=== PATIENT | female | born 1930 | race Caucasian/White ===

== ENCOUNTER 2017-01-23 06:36 | Day surgery (SDC) | payer MEDICARE, BC ==
[~2017-01-23] VITALS: Ht 154.9 cm; Wt 70.3 kg
[~2017-01-23 06:36] MED LIST: ACTOS15 MG PO; HCTZ25 MG PO; HYDROCODON-ACE1 EAC7 PO; LEVOTHYROXINE75 MCG PO; LIPITOR10 MG PO
[2017-01-23 07:22] LABS: HEMATOCRIT 38.4 % (36.0-48.0); HEMOGLOBIN 13.2 g/dL (12-16); MCH 33.6 pg (26.0-34.0); MCHC 34.4 g/dL (31.0-37.0); MCV 97.7 fL (80.0-100.0); MEAN PLATELET VOLUME 11.9 fL (7.4-10.4); RBC 3.93 10x6/uL (4.00-5.40); RDW 13.5 % (11.5-14.5); WBC 2.5 10x3/uL (4.8-10.8)
[2017-01-23 07:23] LABS: PLATELET COUNT 31 10x3/uL (130-400)
--- NOTE | 2017-01-23 07:29 | NUR ---
0725-CRITICAL PLATELET COUNT OF 31 CALLED BY RAFAELA FROM LAB DR SANTOS CALLED AND NEW ORDER RECEIVED FOR 1 UNIT OF PLATELETS TO INFUSE DURING SURGERY READ BACK AND VERIFIED. & ENTERED IN COMPUTER AND FEBRUARY FROM LAB NOTIFIED OF NEW ORDER
[2017-01-23 07:31] LABS: ANION GAP 13.2 mmol/L (8-16); CARBON DIOXIDE 27.4 mmol/L (21.0-32.0); CREATININE - SERUM 0.9 mg/dL (0.6-1.3); POTASSIUM - SERUM 3.6 mmol/L (3.5-5.1)
[2017-01-23 07:56] LABS: EOSINOPHILS 21 % (0-7); LYMPHOCYTES 22 % (15-50); MONOCYTES 2 % (2-11); NEUTROPHILS 54 % (40-80)
[2017-01-23 07:57] LABS: PLATELET ESTIMATE DECREASED
[2017-01-23 08:19] VITALS: BP 161/73; Ht 154.9 cm; Wt 70.3 kg
[2017-01-23] MEDS ORDERED: HYDROCODON-ACE1 EAC7 PO (09:28)
--- NOTE | 2017-02-07 13:21 | OP ---
PATIENT NAME: BALDEV RETANA MEDICAL RECORD: [id number] :31 LOCATION:D.OPS ADMISSION DATE: SURGEON: KEITH SANTOS MD DATE OF OPERATION: 01/23/2017 PREOPERATIVE DIAGNOSES: 1. Non-Hodgkin's lymphoma. 2. Hypertension. 3. Diabetes mellitus. 4. Hypothyroidism. 5. Thrombocytopenia. POSTOPERATIVE DIAGNOSES: 1. Non-Hodgkin's lymphoma. 2. Hypertension. 3. Diabetes mellitus. 4. Hypothyroidism. 5. Thrombocytopenia. PROCEDURE: 1. Right subclavian vein port placement. 2. Fluoroscopic interpretation. SURGEON: Keith Santos MD. OPERATIVE PROCEDURE: The patient's right chest was prepped and draped in sterile fashion and needle was used to cannulate the right subclavian vein. The guidewire was advanced with ease. Fluoro was used to note that the wire was in good position in the venous system. A skin incision was made on the right chest and a subcutaneous pouch was formed. The catheter was tunneled between this pouch and the wire exit site. The port was sutured to the pectoral fascia using interrupted 2-0 Prolenes times 2. The catheter was then cut with a beveled tip at 15 cm. The dilator trocar device was placed over the wire and the wire and dilator were removed. The catheter tip was advanced through the trocar with ease and the trocar was removed. Fluoro was used to note that the catheter tip resting in good position in the right atrial supra vena caval junction. The catheter aspirated a nonpulsatile dark blood and flushed easily with heparinized saline. The subcutaneous tissues were reapproximated with interrupted 3-0 Vicryl and then infused with 10 mL 0.25% Marcaine with epinephrine. The skin incisions were all closed with subcutaneous 5-0 Monocryl and dressed appropriately. COMPLICATIONS: None. CONDITION: Stable. ANESTHESIA: General endotracheal and local. BLOOD LOSS: Minimal. TRANSINT:[id number] Voice Confirmation ID: [id number] DOCUMENT ID: [id number] OPERATIVE REPORT [id number] BALDEV RETANA KEITH SANTOS MD at 1321 CC: DICK VELASQUEZ MD and RAMY GARNER MD [id number] DICTATION DATE: 01/23/17 0932 JACQUARD LACE WEAVER: 01/23/17 1706 [facility] [place] 01/23/17 [facility] [address] [place] [address]
== END 2017-01-23 11:45 | disposition home or self-care (01) ==
LOC: D.OPS 06:36 → D.PAN 08:15 → D.OPS 11:45
PROVIDERS: Anesthesiology
DX: C85.90 Non-Hodgkin lymphoma, unspecified, unspecified site (principal); I10 Essential (primary) hypertension; E11.9 Type 2 diabetes mellitus without complications; E03.9 Hypothyroidism, unspecified; D69.6 Thrombocytopenia, unspecified

== ENCOUNTER 2017-04-10 11:19 | Outpatient (CLI) | payer MEDICARE, BC ==
[~2017-04-10] VITALS: Ht 154.9 cm; Wt 68.6 kg
[2017-04-10 13:52] VITALS: BP 132/63; Ht 154.9 cm; Wt 68.6 kg
--- NOTE | 2017-04-10 16:42 | NUR ---
PORT NEEDLE REMOVED AND FLUSHED WITH HEPRIN AND SALINE
== END 2017-04-10 16:30 | disposition home or self-care (01) ==
LOC: D.OPS 11:19
DX: D69.6 Thrombocytopenia, unspecified (principal)

== ENCOUNTER 2018-08-20 16:23 | Inpatient (IN) | payer MEDICARE, BC ==
[~2018-08-20] VITALS: Ht 154.9 cm; Wt 62.1 kg
--- NOTE | ~2018-08-20 | RHP ---
PATIENT: BALDEV RETANA MEDICAL RECORD: [id number] ACCOUNT: [id number] LOCATION:[facility]1116 : 31 ADMISSION DATE: 08/21/18 REHABILITATION HISTORY AND PHYSICAL EXAMINATION POST ADMISSION PHYSICIAN EXAMINATION DATE OF ADMISSION: 08/21/2018 ADMITTING DIAGNOSIS: Debility secondary to a diabetic neuropathy. HISTORY OF PRESENT ILLNESS: The patient was admitted to inpatient rehab for debility secondary to diabetic neuropathy. He is an 88-year-old female patient that was admitted from the [facility] for significant weakness in bilateral lower extremities and then progressively getting worse over the previous 3 weeks. She had been experiencing some numbness and tingling in her hands and feet, was started on Neurontin that was believed to have actually aggravated her neuropathy and worsen her symptoms and weakness instead of improving it, she began getting weaker and having difficulty with gait and again falling. She became nonverbal, was unable to ambulate prior to this acute hospitalization. She has been started on Lyrica for neuropathic pain. She has become more alert, has been verbalizing her needs since this has begun. She lives at home alone, is usually independent with ADLs and mobility. She began using a rolling walker in the past few weeks since having difficulty with her mobility. She also has been driving. She is currently set for max assist for ADLs, moderate to max assist with mobility. She has neuropathic pain, requiring pain management. She lives alone and is currently unable to feed herself secondary debility, these are all barriers to her discharge. Her family and herself hope to be able to discharge home and be able to get back to her prior low level of function or better if possible. COMORBIDITIES: Include neuropathy, weakness of both lower extremities, hyperkalemia, essential hypertension, acute hyperthyroidism, hyponatremia, cirrhosis, diabetes, history of cancer, weakness, malaise and decreased platelets. PAST MEDICAL HISTORY: Significant for cancer of the bone marrow, diabetes, cirrhosis. PAST SURGICAL HISTORY: Includes hysterectomy. ALLERGIES: METFORMIN. CURRENT MEDICATIONS: Include Synthroid 75 mcg daily, Actos 15 mg daily, meloxicam 7.5 mg daily, Lyrica 50 mg daily, carvedilol 6.25 mg b.i.d. with meals, tramadol 50 mg every 6 hours p.r.n. pain, and polyethylene glycol 17 grams in 8 ounces of water daily. HABITS: No alcohol or tobacco use. FAMILY HISTORY: Noncontributory. SOCIAL HISTORY: The patient hopes to return back home and get back to her prior level of functioning. REVIEW OF SYSTEMS: HISTORY AND PHYSICAL [id number] BALDEV RETANA GENERAL: Does complain of weakness and fatigue. HEENT: Denies cold, cough, or congestion. CARDIOVASCULAR: Denies chest pain. PHYSICAL EXAMINATION: VITAL SIGNS: Stable, afebrile. GENERAL: An elderly female, in no acute distress upon exam. HEENT: Normocephalic and atraumatic. Mucosa moist. NECK: Supple. No lymphadenopathy. LUNGS: Clear in upper jacques. HEART: Regular rate and rhythm. ABDOMEN: Benign. EXTREMITIES: No clubbing, cyanosis or edema. NEUROLOGIC: She does have decreased sensation. She does have pain to palpation of her lower extremities and proximal muscle weakness. LABORATORY DATA: White count is 3.6, H&H of 11 and 33 and platelet count was noted to be 32,000. She has got an MCV of 102.2. Her sodium is 135, potassium is 4.6, BUN and creatinine of 16 and 0.9, blood sugar is noted to be 135. ASSESSMENT: This is an 88-year-old female patient admitted to rehab with a working diagnosis of debility secondary to diabetes and neuropathy. The patient has potential to make improvement. We instituted the following multidisciplinary therapies including, but not limited to physical, occupational, respiratory, speech, nutritional services, prosthetics and orthotics. Given her complex medical condition and risk for more complications, rehabilitation services cannot be provided at a low level of care such as senior living facility. PLAN: 1. Admit to [facility] services for intensive inpatient therapy to include the following disciplines: A. Physical therapy to improve gait, all transfer skills and bed mobility to a modified independent level. B. Occupational therapy to a to a modified independent level. C. Case management to assist with discharge planning and placement options. D. Nutrition to assist with nutritional needs. E. Rehabilitation nursing to assist in monitoring the patient's underlying medical conditions and to assist with any type of bowel or bladder management. 2. The patient's current medication and medical care will be continued. 3. The patient will be placed on standard fall precautions. 4. The patient's estimated length of stay is approximately 7 to 10 days. 5. We will watch her platelets closely, watch for any signs of bleeding. We will give her some platelets if necessary. 6. I am going to follow up in the a.m. TRANSINT:[id number] Voice Confirmation ID: [id number] DOCUMENT ID: [id number] LENA notes whether there has been none or any medical/functional change since admission: - No change since prescreen. LENA attests patient continues to be appropriate for IRF: HISTORY AND PHYSICAL [id number] BALDEV RETANA - Continues to be approriate. AZEEM JULIO MD at 1812 CC: [id number] DICTATION DATE: 08/22/18 0952 CORRESPONDENCE SCHOOL INSTRUCTOR: 08/22/18 1021 ADM IN [place] [id number] [place] [address]
[2018-08-21] MEDS ORDERED: COREG6.25 MG (13:39)
[2018-08-21] MEDS ORDERED: LYRICA50 MG PO (13:40)
[2018-08-21] MEDS ORDERED: ULTRAM50 MG PO (13:41)
[2018-08-21] MEDS ORDERED: MOBIC7.5 MG PO (13:44)
[2018-08-21 14:17] VITALS: BP 115/43
[2018-08-21] MEDS ORDERED: GABAPENTIN100 MG (16:57)
[2018-08-21 19:00] VITALS: BP 121/46
[2018-08-22 06:46] LABS: BASOPHILS 0.6 % (0-2); HEMATOCRIT 33.1 % (36.0-48.0); LYMPHOCYTES 19.8 % (15-50); MCHC 33.2 g/dL (31.0-37.0); MCV 102.2 fL (80.0-100.0); MEAN PLATELET VOLUME 10.6 fL (7.4-10.4); MONOCYTES 8.8 % (2-11); NEUTROPHILS 62.8 % (40-80); RBC 3.24 10x6/uL (4.00-5.40); RDW 17.3 % (11.5-14.5); WBC 3.6 10x3/uL (4.8-10.8)
[2018-08-22 06:47] LABS: PLATELET COUNT 32 10x3/uL (130-400)
[2018-08-22 06:58] LABS: ANION GAP 11.6 mmol/L (8-16); CALCIUM 7.9 mg/dL (8.5-10.1); CREATININE - SERUM 0.9 mg/dL (0.6-1.3); POTASSIUM - SERUM 4.6 mmol/L (3.5-5.1)
[2018-08-22 09:50] VITALS: BMI 25.8
[2018-08-22 19:44] VITALS: BP 107/35
[2018-08-23 09:48] VITALS: BP 116/47
[2018-08-23 21:51] VITALS: BP 105/54
[2018-08-24 07:13] LABS: BASOPHILS 0.4 % (0-2); EOSINOPHILS 9.2 % (0-7); HEMATOCRIT 32.8 % (36.0-48.0); HEMOGLOBIN 10.8 g/dL (12-16); IMMATURE GRANULOCYTES 0.4 % (0-5); LYMPHOCYTES 24.5 % (15-50); MCH 34.3 pg (26.0-34.0); MCHC 32.9 g/dL (31.0-37.0); MCV 104.1 fL (80.0-100.0); MEAN PLATELET VOLUME 10.4 fL (7.4-10.4); MONOCYTES 9.6 % (2-11); NEUTROPHILS 55.9 % (40-80); RBC 3.15 10x6/uL (4.00-5.40); RDW 17.8 % (11.5-14.5)
[2018-08-24 07:25] LABS: ANION GAP 13.8 mmol/L (8-16); CARBON DIOXIDE 22.4 mmol/L (21.0-32.0); CREATININE - SERUM 0.9 mg/dL (0.6-1.3); POTASSIUM - SERUM 4.2 mmol/L (3.5-5.1)
[2018-08-24 07:26] LABS: WBC 2.5 10x3/uL (4.8-10.8)
[2018-08-24 07:29] LABS: PLATELET COUNT 27 10x3/uL (130-400)
[2018-08-24 07:58] VITALS: BP 143/46
[2018-08-24 12:31] LABS: CKMB 0.9 U/L (0.0-3.6); CREATINE KINASE 50 UL (21-215); TROPONIN-I < 0.017 ng/mL (0.000-0.060)
[2018-08-24 17:40] LABS: CKMB 0.6 U/L (0.0-3.6); CREATINE KINASE 54 UL (21-215)
[2018-08-24 17:41] LABS: TROPONIN-I < 0.017 ng/mL (0.000-0.060)
[2018-08-24 19:00] VITALS: BP 103/34
[2018-08-24 23:53] LABS: CKMB 0.8 U/L (0.0-3.6); CREATINE KINASE 49 UL (21-215); TROPONIN-I 0.017 ng/mL (0.000-0.060)
[2018-08-25 08:00] VITALS: BP 142/58
[2018-08-25 19:00] VITALS: BP 116/42
[2018-08-26 06:19] LABS: HEMATOCRIT 33.2 % (36.0-48.0); HEMOGLOBIN 10.8 g/dL (12-16); MCH 34.6 pg (26.0-34.0); MCHC 32.5 g/dL (31.0-37.0); MCV 106.4 fL (80.0-100.0); MEAN PLATELET VOLUME 11.7 fL (7.4-10.4); RBC 3.12 10x6/uL (4.00-5.40); RDW 18.1 % (11.5-14.5); WBC 2.4 10x3/uL (4.8-10.8)
[2018-08-26 06:20] LABS: PLATELET COUNT 27 10x3/uL (130-400)
[2018-08-26 06:37] LABS: ANION GAP 10.7 mmol/L (8-16); CALCIUM 8.1 mg/dL (8.5-10.1); CARBON DIOXIDE 23.9 mmol/L (21.0-32.0); CREATININE - SERUM 0.9 mg/dL (0.6-1.3); POTASSIUM - SERUM 4.6 mmol/L (3.5-5.1)
[2018-08-26 07:45] LABS: EOSINOPHILS 4 % (0-7); LYMPHOCYTES 24 % (15-50); MONOCYTES 6 % (2-11); NEUTROPHILS 63 % (40-80); PLATELET ESTIMATE DECREASED
[2018-08-26 07:46] LABS: ROULEAUX OCC
[2018-08-26 08:00] VITALS: BP 130/46
[2018-08-26 19:00] VITALS: BP 106/34
[2018-08-27 08:39] VITALS: BP 142/72
[2018-08-27 19:00] VITALS: BP 130/44
[2018-08-28 06:15] LABS: BASOPHILS 0.4 % (0-2); EOSINOPHILS 7.6 % (0-7); HEMATOCRIT 33.7 % (36.0-48.0); LYMPHOCYTES 26.3 % (15-50); MCH 34.4 pg (26.0-34.0); MCHC 32.6 g/dL (31.0-37.0); MCV 105.3 fL (80.0-100.0); MEAN PLATELET VOLUME 10.7 fL (7.4-10.4); MONOCYTES 11.6 % (2-11); NEUTROPHILS 54.1 % (40-80); RDW 18.1 % (11.5-14.5); WBC 2.5 10x3/uL (4.8-10.8)
[2018-08-28 06:23] LABS: PLATELET COUNT 27 10x3/uL (130-400)
[2018-08-28 06:30] LABS: ANION GAP 10.5 mmol/L (8-16); CALCIUM 8.1 mg/dL (8.5-10.1); CARBON DIOXIDE 23.8 mmol/L (21.0-32.0); POTASSIUM - SERUM 4.3 mmol/L (3.5-5.1)
[2018-08-28 08:00] VITALS: BP 121/51
[2018-08-28 19:00] VITALS: BP 124/42
[2018-08-29 08:00] VITALS: BP 135/54
[2018-08-29 23:34] VITALS: BP 128/76
[2018-08-30 08:57] VITALS: BP 162/52
[2018-08-30 20:11] VITALS: BP 138/48
[2018-08-31 06:17] LABS: BASOPHILS 0.4 % (0-2); EOSINOPHILS 7.8 % (0-7); HEMATOCRIT 32.4 % (36.0-48.0); HEMOGLOBIN 10.6 g/dL (12-16); LYMPHOCYTES 25.2 % (15-50); MCH 34.5 pg (26.0-34.0); MCHC 32.7 g/dL (31.0-37.0); MCV 105.5 fL (80.0-100.0); MONOCYTES 8.1 % (2-11); NEUTROPHILS 58.5 % (40-80); RBC 3.07 10x6/uL (4.00-5.40); WBC 2.6 10x3/uL (4.8-10.8)
[2018-08-31 06:24] LABS: PLATELET COUNT 29 10x3/uL (130-400)
[2018-08-31 06:31] LABS: ANION GAP 11.2 mmol/L (8-16); CARBON DIOXIDE 23.9 mmol/L (21.0-32.0); CREATININE - SERUM 0.9 mg/dL (0.6-1.3); POTASSIUM - SERUM 4.1 mmol/L (3.5-5.1)
[2018-08-31 08:00] VITALS: BP 172/67
[2018-08-31 19:05] VITALS: BP 122/59
[2018-09-01 09:31] VITALS: Ht 154.9 cm; Wt 62.1 kg
[2018-09-02 00:16] VITALS: BP 96/34
[2018-09-02 19:00] VITALS: BP 129/51
[2018-09-03 01:40] VITALS: BP 114/41
[2018-09-03 01:55] VITALS: BP 110/38
[2018-09-03 02:10] VITALS: BP 104/40
[2018-09-03 04:20] VITALS: BP 93/39
[2018-09-03 08:00] VITALS: BP 141/47
[2018-09-03 19:00] VITALS: BP 100/33
[2018-09-04 07:17] LABS: ANION GAP 11.2 mmol/L (8-16); CALCIUM 8.4 mg/dL (8.5-10.1); CARBON DIOXIDE 24.5 mmol/L (21.0-32.0); CREATININE - SERUM 1.4 mg/dL (0.6-1.3); POTASSIUM - SERUM 4.7 mmol/L (3.5-5.1)
[2018-09-04 07:22] LABS: HEMATOCRIT 32.7 % (36.0-48.0); HEMOGLOBIN 10.9 g/dL (12-16); LYMPHOCYTES 28.3 % (15-50); MCH 34.6 pg (26.0-34.0); MCHC 33.3 g/dL (31.0-37.0); MCV 103.8 fL (80.0-100.0); NEUTROPHILS 61.4 % (40-80); RBC 3.15 10x6/uL (4.00-5.40); RDW 18.7 % (11.5-14.5); WBC 2.6 10x3/uL (4.8-10.8)
[2018-09-04 07:23] LABS: PLATELET COUNT 23 10x3/uL (130-400)
[2018-09-04 07:24] LABS: MEAN PLATELET VOLUME 6.9 fL (7.4-10.4)
[2018-09-04 08:00] VITALS: BP 130/48
== END 2018-09-04 13:20 | DRG 948 ==
LOC: D.REHAB 16:23
PROVIDERS: Emergency Medicine
DX: R53.81 Other malaise (principal); E87.1 Hypo-osmolality and hyponatremia; E11.40 Type 2 diabetes mellitus with diabetic neuropathy, unspecified; R53.1 Weakness; E87.5 Hyperkalemia; I10 Essential (primary) hypertension; E05.90 Thyrotoxicosis, unspecified without thyrotoxic crisis or storm; K74.60 Unspecified cirrhosis of liver; E11.65 Type 2 diabetes mellitus with hyperglycemia; E03.9 Hypothyroidism, unspecified; D69.6 Thrombocytopenia, unspecified

== ENCOUNTER 2018-09-21 17:56 | Inpatient (IN) | payer MEDICARE, BC ==
[~2018-09-21] VITALS: Ht 154.9 cm; Wt 65.8 kg
--- NOTE | ~2018-09-21 | MORECARE ---
CASE MANAGEMENT DISCHARGE SUMMARY PATIENT: BALDEV RETANA UNIT: [id number] ADM DATE: 09/21/18 AGE: 88 : 31 SEX: F ROOM/BED: D.2222 AUTHOR: SETH SALMERON PHYSICIAN: REFERRING PHYSICIAN: ROEL JOLLEY MD DATE OF SERVICE: 09/22/18 Discharge Plan Patient Name: BALDEV RETANA [facility] [facility] 1930 Planned Disposition: SNF w Planned Readmission Anticipated Discharge Date: Discharge Date: Expected LOS: Initial Reviewer: [email or web address] Initial Review Date: 09/22/2018 Generated: 09/22/18 11:56 am Patient Name: BALDEV RETANA Page [id number] at 1056 All edits/amendments must be made on the electronic document DICTATION DATE: 09/22/18 1055 CONFIGURATION DEVELOPER: DONNELL 09/22/18 1055 RPT#: [id number] DC DATE: STATUS: ADM IN [facility] [address] [place] [address] END OF REPORT
--- NOTE | ~2018-09-21 | MORECARE ---
CASE MANAGEMENT DISCHARGE SUMMARY PATIENT: BALDEV RETANA UNIT: [id number] ADM DATE: 09/21/18 AGE: 88 : 31 SEX: F ROOM/BED: D.2222 AUTHOR: JARON,SETH PHYSICIAN: REFERRING PHYSICIAN: ROEL JOLLEY MD DATE OF SERVICE: 09/29/18 Discharge Plan Patient Name: BALDEV RETANA Facility: [facility]:[place] : 1930 Planned Disposition: SNF w Planned Readmission Anticipated Discharge Date: Discharge Date: Expected LOS: Initial Reviewer: [email or web address] Initial Review Date: 09/22/2018 Generated: 09/29/18 11:00 am Comments DCP- Discharge Planning Updated by [email or web address]: Bri Morataya on 09/29/18 8:[address] Met with patient, she is sitting up in the chair. States her discharge plan remains returning to [facility] to continue her therapy. Updated clinical faxed to [facility]. CM will continue to follow and assist with discharge planning/needs. DCP- Discharge Planning Updated by [email or web address]: Bri Morataya on 09/22/18 10:[address] I spoke with Rosaura at [facility] and they will accept patient back to SNF when medically stable. CM will continue to follow and assist with discharge planning/needs. DCP- Discharge Planning Updated by [email or web address]: Bri Morataya on 09/22/18 10:[address] Patient Name: BALDEV RETANA Admission Status: Elective Accout number: [id number] Admission Date: 09-21-2018 : 1930 Admission Diagnosis: Attending: ROEL JOLLEY Current LOS: 1 Anticipated DC Date: Planned Disposition: SNF w Planned Readmission Primary Insurance: MEDICARE A & B Discharge Planning Comments: CM met with patient to discuss discharge planning. She was alone in the room when starting discharge planning and gave me permission to call her son or DIL to discuss plan. She states that she was living alone prior to going to our rehab, then to [facility] for therapy. She would like to go home, but states if she is unable to go home would like to go back to [facility]. She states she has a "walking stick, potty chair, walker and her daughter in law has bought a wheelchair". The son and DIL came in before I left the room and they states she does live alone and will need to be "self sufficient before going to her home." CM will continue to follow and assist with discharge/planning. Principal Solutions Architect: Bri Rafia DCPIA - Discharge Planning Initial Assessment Updated by [email or web address]: Bri Morataya on 09/22/18 10:57 am * Is the patient Alert and Oriented? Yes * How many steps to enter\\exit or inside your home? 2/0 * PCP Dr. Tran * Pharmacy [facility] in [place] * Preadmission Environment Acute Care Facility * Facility Name [facility] * ADLs Partial Dependent * Partial ADLs (Assistance needed) Ambulation Bathing Medication Management Toileting Transfers * Equipment Bedside Commode Cane Walker Wheelchair * List name and contact numbers for known caregivers / representatives who currently or will assist patient after discharge: Barney Retana - igor - [phone] Mila BECKER - [phone] * Verbal permission to speak to the caregivers and representatives has been obtained from the patient. Yes * Community resources currently utilized Other * Please name any agencies selected above. Was at [facility] in [place] for skilled therapy * Additional services required to return to the preadmission environment? Yes * Can the patient safely return to the preadmission environment? No * Has this patient been hospitalized within the prior 30 days at any hospital? Yes Last DP export: 09/23/18 11:08 Patient Name: BALDEV RETANA Page 07062 at 1000 All edits/amendments must be made on the electronic document DICTATION DATE: 09/29/18 1000 REHABILITATION THERAPIST: DONNELL 09/29/18 1000 RPT#: [id number] DC DATE: STATUS: ADM IN [facility] [address] [place] [address] END OF REPORT
--- NOTE | ~2018-09-21 | MORECARE ---
CASE MANAGEMENT DISCHARGE SUMMARY PATIENT: BALDEV RETANA UNIT: [id number] ADM DATE: 09/21/18 AGE: 88 : 31 SEX: F ROOM/BED: D.2222 AUTHOR: JARON,DOC PHYSICIAN: REFERRING PHYSICIAN: ROEL JOLLEY MD DATE OF SERVICE: 10/05/18 Discharge Plan Patient Name: BALDEV RETANA Facility: [facility]:[place] : 1930 Planned Disposition: SNF w Planned Readmission Anticipated Discharge Date: Discharge Date: Expected LOS: Initial Reviewer: [email or web address] Initial Review Date: 09/22/2018 Generated: 10/05/18 4:13 pm Comments DCP- Discharge Planning Updated by [email or web address]: Bri Morataya on 10/05/18 2:[address] Received discharge order, she is in agreement to go to inpatient rehab tonight after her bone marrow biopsy. She states it is ok to call her son and inform him. I called her son, Barney Retana, he would like to be notified when all doctor's are in agreement to discharge her to rehab. I informed him that we would call her consulting doctors before she was transferred. I informed Renae (well flow operator) to make sure Dr. Zapata does not want to wait until biopsy result is back. If she needs to start treatment, she may not be able to transfer to rehab tonight. CM will continue to follow and assist with discharge planning/needs. DCP- Discharge Planning Updated by [email or web address]: Bri Morataya on 10/02/18 9:[address] Inpatient rehab screen noted. Patient is asleep in the room. I called patient's son, Barney, and he states that they and the patient would like her to go to inpatient rehab here at [facility]. Son states that he feels like she can rehab enough in the 10-14 days to return home after inpatient rehab is completed. I spoke with Miriam in inpatient rehab and they will screen. CM will continue to follow and assist with discharge planning/needs. DCP- Discharge Planning Updated by [email or web address]: Bri Morataya on 09/29/18 8:[address] Met with patient, she is sitting up in the chair. States her discharge plan remains returning to [facility] to continue her therapy. Updated clinical faxed to [facility]. CM will continue to follow and assist with discharge planning/needs. DCP- Discharge Planning Updated by [email or web address]: Bri Collinsbyron on 09/22/18 10:[address] I spoke with Rosaura at [facility] and they will accept patient back to SNF when medically stable. CM will continue to follow and assist with discharge planning/needs. DCP- Discharge Planning Updated by [email or web address]: Bri Collinsbyron on 09/22/18 10:[address] Patient Name: BALDEV RETANA Admission Status: Elective Accout number: [id number] Admission Date: 09-21-2018 : 1930 Admission Diagnosis: Attending: ROEL JOLLEY Current LOS: 1 Anticipated DC Date: Planned Disposition: SNF w Planned Readmission Primary Insurance: MEDICARE A & B Discharge Planning Comments: CM met with patient to discuss discharge planning. She was alone in the room when starting discharge planning and gave me permission to call her son or DIL to discuss plan. She states that she was living alone prior to going to our rehab, then to [facility] for therapy. She would like to go home, but states if she is unable to go home would like to go back to [facility]. She states she has a "walking stick, potty chair, walker and her daughter in law has bought a wheelchair". The son and DIL came in before I left the room and they states she does live alone and will need to be "self sufficient before going to her home." CM will continue to follow and assist with discharge/planning. Competitive Intelligence Analyst: Bri Rafia DCPIA - Discharge Planning Initial Assessment Updated by [email or web address]: Bri Collinsbyron on 09/22/18 10:57 am * Is the patient Alert and Oriented? Yes * How many steps to enter\\exit or inside your home? 2/0 * PCP Dr. Tran * Pharmacy [facility] in [place] * Preadmission Environment Acute Care Facility * Facility Name [facility] * ADLs Partial Dependent * Partial ADLs (Assistance needed) Ambulation Bathing Medication Management Toileting Transfers * Equipment Bedside Commode Cane Walker Wheelchair * List name and contact numbers for known caregivers / representatives who currently or will assist patient after discharge: Barney Retana - son - [phone] Mila Davenport [facility] - [phone] * Verbal permission to speak to the caregivers and representatives has been obtained from the patient. Yes * Community resources currently utilized Other * Please name any agencies selected above. Was at [facility] in [place] for skilled therapy * Additional services required to return to the preadmission environment? Yes * Can the patient safely return to the preadmission environment? No * Has this patient been hospitalized within the prior 30 days at any hospital? Yes Coverage Notice Reviewer: [email or web address] Ethel Morataya Notice Issued Date-Time: 10/05/2018 14:56 Notice Type: IM Discharge Notice Notice Delivered To: Patient Relationship to Patient: Self Instructional Leader Name: Delivery Method: HAND - Hand Delivered Damaris Days: Prior Verbal Notification: Recipient Understood Notice: Yes Recipient Signature: Yes Med Rec Note Co-signed by Attending: Coverage Notice Comment: IMM explained, signed, copy given, original placed in MR Last DP export: 10/02/18 9:53 Patient Name: BALDEV RETANA Page 40817 at 1514 All edits/amendments must be made on the electronic document DICTATION DATE: 10/05/181512 DRAFTER AUTOMOTIVE DESIGN: DONNELL 10/05/181512 RPT#: [id number] DC DATE: STATUS: ADM IN [facility] [address] [place] [address] END OF REPORT
--- NOTE | ~2018-09-21 | MORECARE ---
CASE MANAGEMENT DISCHARGE SUMMARY PATIENT: BALDEV RETANA UNIT: [id number] ADM DATE: 09/21/18 AGE: 88 : 31 SEX: F ROOM/BED: D.2222 AUTHOR: JARON,DOC PHYSICIAN: REFERRING PHYSICIAN: ROEL JOLLEY MD DATE OF SERVICE: 10/06/18 Discharge Plan Patient Name: BALDEV RETANA Facility: [facility]:[place] : 1930 Planned Disposition: SNF w Planned Readmission Anticipated Discharge Date: Discharge Date: 10/05/2018 Expected LOS: 0 Initial Reviewer: [email or web address] Initial Review Date: 09/22/2018 Generated: 10/06/18 8:58 am Comments DCP- Discharge Planning Updated by [email or web address]: Bri Morataya on 10/05/18 2:[address] Received discharge order, she is in agreement to go to inpatient rehab tonight after her bone marrow biopsy. She states it is ok to call her son and inform him. I called her son, Barney Retana, he would like to be notified when all doctor's are in agreement to discharge her to rehab. I informed him that we would call her consulting doctors before she was transferred. I informed Renae (community health education coordinator) to make sure Dr. Zapata does not want to wait until biopsy result is back. If she needs to start treatment, she may not be able to transfer to rehab tonight. CM will continue to follow and assist with discharge planning/needs. DCP- Discharge Planning Updated by [email or web address]: Bri Collinsbyron on 10/02/18 9:[address] Inpatient rehab screen noted. Patient is asleep in the room. I called patient's son, Barney, and he states that they and the patient would like her to go to inpatient rehab here at [facility]. Son states that he feels like she can rehab enough in the 10-14 days to return home after inpatient rehab is completed. I spoke with Miriam in inpatient rehab and they will screen. CM will continue to follow and assist with discharge planning/needs. DCP- Discharge Planning Updated by [id number]: Bri Collinsbyron on 09/29/18 8:[address] Met with patient, she is sitting up in the chair. States her discharge plan remains returning to [facility] to continue her therapy. Updated clinical faxed to [facility]. CM will continue to follow and assist with discharge planning/needs. DCP- Discharge Planning Updated by [email or web address]: Bri Rafia on 09/22/18 10:[address] I spoke with Rosaura at [facility] and they will accept patient back to SNF when medically stable. CM will continue to follow and assist with discharge planning/needs. DCP- Discharge Planning Updated by [email or web address]: Bri Rafia on 09/22/18 10:[address] Patient Name: BALDEV RETANA Admission Status: Elective Accout number: [id number] Admission Date: 09-21-2018 : 1930 Admission Diagnosis: Attending: ROEL JOLLEY Current LOS: 1 Anticipated DC Date: Planned Disposition: SNF w Planned Readmission Primary Insurance: MEDICARE A & B Discharge Planning Comments: CM met with patient to discuss discharge planning. She was alone in the room when starting discharge planning and gave me permission to call her son or DIL to discuss plan. She states that she was living alone prior to going to our rehab, then to [facility] for therapy. She would like to go home, but states if she is unable to go home would like to go back to [facility]. She states she has a "walking stick, potty chair, walker and her daughter in law has bought a wheelchair". The son and DIL came in before I left the room and they states she does live alone and will need to be "self sufficient before going to her home." CM will continue to follow and assist with discharge/planning. Dress Finisher: Bri Morataya DCPIA - Discharge Planning Initial Assessment Updated by [email or web address]: Bri Morataya on 09/22/18 10:57 am * Is the patient Alert and Oriented? Yes * How many steps to enter\\exit or inside your home? 2/0 * PCP Dr. Tran * Pharmacy [facility] in [place] * Preadmission Environment Acute Care Facility * Facility Name [facility] * ADLs Partial Dependent * Partial ADLs (Assistance needed) Ambulation Bathing Medication Management Toileting Transfers * Equipment Bedside Commode Cane Walker Wheelchair * List name and contact numbers for known caregivers / representatives who currently or will assist patient after discharge: Barney Retana - [facility] - [phone] Mila Retana [facility] - [phone] * Verbal permission to speak to the caregivers and representatives has been obtained from the patient. Yes * Community resources currently utilized Other * Please name any agencies selected above. Was at [facility] in [place] for skilled therapy * Additional services required to return to the preadmission environment? Yes * Can the patient safely return to the preadmission environment? No * Has this patient been hospitalized within the prior 30 days at any hospital? Yes Coverage Notice Reviewer: [id number] Ethel Morataya Notice Issued Date-Time: 10/05/2018 14:56 Notice Type: IM Discharge Notice Notice Delivered To: Patient Relationship to Patient: Self Sales Representative Printing Name: Delivery Method: HAND - Hand Delivered Damaris Days: Prior Verbal Notification: Recipient Understood Notice: Yes Recipient Signature: Yes Med Rec Note Co-signed by Attending: Coverage Notice Comment: IMM explained, signed, copy given, original placed in MR Last DP export: 10/05/18 2:14 Patient Name: BALDEV RETANA Page 20161 at 0758 All edits/amendments must be made on the electronic document DICTATION DATE: 10/06/18756 RECEIVING CLERK: DONNELL 10/06/18756 RPT#: [id number] DC DATE:10/05/18 STATUS: DIS IN [facility] [address] [place] [address] END OF REPORT
--- NOTE | ~2018-09-21 | CN ---
PATIENT NAME:BALDEV RETANA MEDICAL RECORD: [id number] : 32 LOCATION:D.MS Ramos2222 ADMIT DATE: 09/21/18 ACCOUNT: [id number] CONSULTING PHYSICIAN: AXEL QUINONES MD REFERRING PHYSICIAN: ROEL JOLLEY MD DATE OF CONSULTATION: 09/22/2018 CONSULT REQUESTING PHYSICIAN: Alex Oreilly MD REASON FOR CONSULTATION: Pneumonia and bilateral pleural effusion. HISTORY OF PRESENT ILLNESS: Ms. Retana is an 88-year-old female who was admitted to [facility] with generalized edema and bilateral pleural effusion. Recently, she was diagnosed with cirrhosis of the liver. The patient was transferred over here for further care. She has some night sweats at night. Denies any fever or chills now. She has cough with very little sputum production. REVIEW OF THE SYSTEMS: Mainly in the history of present illness. PAST MEDICAL HISTORY: 1. History of non-Hodgkin's lymphoma. She was on chemotherapy by Dr. Zapata. 2. History of hyperkalemia. 3. Hypertension. 4. Cataract. 5. Diabetes mellitus type 2. 6. Hypothyroidism. PAST SURGICAL HISTORY: She had hysterectomy. She had a port placement. ALLERGIES: SHE IS ALLERGIC TO METFORMIN. MEDICATIONS: [employer] was reviewed. PERSONAL AND SOCIAL HISTORY: The patient is never smoker and nondrinker. FAMILY HISTORY: Significant for cancer and hypertension. PHYSICAL EXAMINATION: GENERAL: The patient is now lying comfortably in bed. She is not in acute distress. VITAL SIGNS: The blood pressure is 177/69, pulse is 74, respiration is 16, temperature 98.1, and SpO2 95% on 2 liters nasal cannula. HEENT: Conjunctivae are pale. Sclerae are not icteric. NECK: Neck is supple. No JVD. CHEST: The chest excursion is minimal on the left side. There are crackles. No wheezing. HEART: Rhythm regular. Normal sound. No murmur. ABDOMEN: Abdomen is soft. Bowel sounds present. No hepatosplenomegaly. RECTAL: Deferred. EXTREMITIES: No cyanosis. No clubbing. No pedal edema. CENTRAL NERVOUS SYSTEM: The patient is awake and alert. There is no obvious cranial nerve abnormality. The gait was not tested. DIAGNOSTIC DATA: Chest radiograph; there is consolidation of the left lower CONSULT REPORT [id number] KEYS,BALDEV DELL lobe. There is bilateral pleural effusion. LABORATORY DATA: CBC; the WBC is 2.9, hemoglobin 10.9, hematocrit 33.7, and the platelet count is 24. IMPRESSION: 1. Acute hypoxic respiratory failure secondary to #2. 2. Pneumonia, left lower lobe. 3. Bilateral pleural effusion. 4. Cirrhosis of liver. 5. Pancytopenia. 6. History of non-Hodgkin's lymphoma. RECOMMENDATION: 1. Discontinue Zithromax. Start on Levaquin. 2. Rocephin IV. 3. GI consult. 4. Dr. Zapata has already been consulted. 5. Check CT scan of the chest. 6. Follow up labs and chest radiograph. Dr. Oreilly, thank you for involving me in the care of Ms. Retana. TRANSINT:[id number] Voice Confirmation ID: [id number] DOCUMENT ID: [id number] AXEL QUINONES MD at 1711 CC: [id number] DICTATION DATE: 09/22/18 1534 DIRECTOR PRESALES: 09/22/18 1809 DIS IN 10/05/18 [address] [place] [place] [address]
--- NOTE | ~2018-09-21 | MORECARE ---
CASE MANAGEMENT DISCHARGE SUMMARY PATIENT: BALDEV RETANA UNIT: [id number] ADM DATE: 09/21/18 AGE: 88 : 31 SEX: F ROOM/BED: D.2222 AUTHOR: SETH SALMERON PHYSICIAN: REFERRING PHYSICIAN: ROEL JOLLEY MD DATE OF SERVICE: 09/22/18 Discharge Plan Patient Name: BALDEV RETANA Facility: [facility]:[place] : 1930 Planned Disposition: SNF w Planned Readmission Anticipated Discharge Date: Discharge Date: Expected LOS: Initial Reviewer: [email or web address] Initial Review Date: 09/22/2018 Generated: 09/22/18 12:02 pm DCPIA - Discharge Planning Initial Assessment Updated by [email or web address]: Bri Morataya on 09/22/18 10:57 am * Is the patient Alert and Oriented? Yes * How many steps to enter\exit or inside your home? 2/0 * PCP Dr. Tran * Pharmacy [facility] in [place] * Preadmission Environment Acute Care Facility * Facility Name [facility] * ADLs Partial Dependent * Partial ADLs (Assistance needed) Ambulation Bathing Medication Management Toileting Transfers * Equipment Bedside Commode Cane Walker Wheelchair * List name and contact numbers for known caregivers / representatives who currently or will assist patient after discharge: Barney Retana - son - [phone] Mila Retana [facility] - [phone] * Verbal permission to speak to the caregivers and representatives has been obtained from the patient. Yes * Community resources currently utilized Other * Please name any agencies selected above. Was at [facility] in [place] for skilled therapy * Additional services required to return to the preadmission environment? Yes * Can the patient safely return to the preadmission environment? No * Has this patient been hospitalized within the prior 30 days at any hospital? Yes Last DP export: 09/22/18 9:56 Patient Name: BALDEV RETANA Page [id number] at 1102 All edits/amendments must be made on the electronic document DICTATION DATE: 09/22/18 1102 [employer] SUPERINTENDENT: DONNELL 09/22/18 1102 RPT#: [id number] DC DATE: STATUS: ADM IN [facility] [address] [place] [address] END OF REPORT
--- NOTE | ~2018-09-21 | MORECARE ---
CASE MANAGEMENT DISCHARGE SUMMARY PATIENT: BALDEV RETANA UNIT: [id number] ADM DATE: 09/21/18 AGE: 88 : 31 SEX: F ROOM/BED: D.2222 AUTHOR: JARONDOC PHYSICIAN: REFERRING PHYSICIAN: ROEL JOLLEY MD DATE OF SERVICE: 09/23/18 Discharge Plan Patient Name: BALDEV RETANA Facility: [facility]:[place] : 1930 Planned Disposition: SNF w Planned Readmission Anticipated Discharge Date: Discharge Date: Expected LOS: Initial Reviewer: [email or web address] Initial Review Date: 09/22/2018 Generated: 09/23/18 1:08 pm Comments DCP- Discharge Planning Updated by [email or web address]: Bri Morataya on 09/22/18 10:[address] I spoke with Rosaura at [facility] and they will accept patient back to SNF when medically stable. CM will continue to follow and assist with discharge planning/needs. DCP- Discharge Planning Updated by [id number]: Bri Morataya on 09/22/18 10:[address] Patient Name: BALDEV RETANA Admission Status: Elective Accout number: [id number] Admission Date: 09-21-2018 : 1930 Admission Diagnosis: Attending: ROEL JOLLEY Current LOS: 1 Anticipated DC Date: Planned Disposition: SNF w Planned Readmission Primary Insurance: MEDICARE A & B Discharge Planning Comments: CM met with patient to discuss discharge planning. She was alone in the room when starting discharge planning and gave me permission to call her son or DIL to discuss plan. She states that she was living alone prior to going to our rehab, then to [facility] for therapy. She would like to go home, but states if she is unable to go home would like to go back to [facility]. She states she has a "walking stick, potty chair, walker and her daughter in law has bought a wheelchair". The son and DIL came in before I left the room and they states she does live alone and will need to be "self sufficient before going to her home." CM will continue to follow and assist with discharge/planning. Membership Sales Representative: Bri Morataya DCPIA - Discharge Planning Initial Assessment Updated by [email or web address]: Bri Morataya on 09/22/18 10:57 am * Is the patient Alert and Oriented? Yes * How many steps to enter\\exit or inside your home? 2/0 * PCP Dr. Tran * Pharmacy [facility] in [place] * Preadmission Environment Acute Care Facility * Facility Name [facility] * ADLs Partial Dependent * Partial ADLs (Assistance needed) Ambulation Bathing Medication Management Toileting Transfers * Equipment Bedside Commode Cane Walker Wheelchair * List name and contact numbers for known caregivers / representatives who currently or will assist patient after discharge: Barney Retana [facility] - [phone] Mila Retana [facility] - [phone] * Verbal permission to speak to the caregivers and representatives has been obtained from the patient. Yes * Community resources currently utilized Other * Please name any agencies selected above. Was at [facility] in [place] for skilled therapy * Additional services required to return to the preadmission environment? Yes * Can the patient safely return to the preadmission environment? No * Has this patient been hospitalized within the prior 30 days at any hospital? Yes External Providers External Provider: [facility] Next Contact Date: Service Request Date: Service Type: Resolution: Reviewer: Comments: Last DP export: 09/22/18 10:10 Patient Name: BALDEV RETANA Page [id number] at 1208 All edits/amendments must be made on the electronic document DICTATION DATE: 09/23/181207 RN DIALYSIS: DONNELL 09/23/18 1208 RPT#: [id number] DC DATE: STATUS: ADM IN [facility] [address] [place] [address] END OF REPORT
--- NOTE | ~2018-09-21 | MORECARE ---
CASE MANAGEMENT DISCHARGE SUMMARY PATIENT: BALDEV RETANA UNIT: [id number] ADM DATE: 09/21/18 AGE: 88 : 31 SEX: F ROOM/BED: D.2222 AUTHOR: JARONDOC PHYSICIAN: REFERRING PHYSICIAN: ROEL JOLLEY MD DATE OF SERVICE: 09/22/18 Discharge Plan Patient Name: BALDEV RETANA Facility: [facility]:[place] : 1930 Planned Disposition: SNF w Planned Readmission Anticipated Discharge Date: Discharge Date: Expected LOS: Initial Reviewer: [email or web address] Initial Review Date: 09/22/2018 Generated: 09/22/18 12:10 pm Comments DCP- Discharge Planning Updated by [email or web address]: Bri Morataya on 09/22/18 10:[address] I spoke with Rosaura at [facility] and they will accept patient back to SNF when medically stable. CM will continue to follow and assist with discharge planning/needs. DCP- Discharge Planning Updated by [email or web address]: Bri Morataya on 09/22/18 10:[address] Patient Name: BALDEV RETANA Admission Status: Elective Accout number: [id number] Admission Date: 09-21-2018 : 1930 Admission Diagnosis: Attending: ROEL JOLLEY Current LOS: 1 Anticipated DC Date: Planned Disposition: SNF w Planned Readmission Primary Insurance: MEDICARE A & B Discharge Planning Comments: CM met with patient to discuss discharge planning. She was alone in the room when starting discharge planning and gave me permission to call her son or DIL to discuss plan. She states that she was living alone prior to going to our rehab, then to [facility] for therapy. She would like to go home, but states if she is unable to go home would like to go back to [facility]. She states she has a "walking stick, potty chair, walker and her daughter in law has bought a wheelchair". The son and DIL came in before I left the room and they states she does live alone and will need to be "self sufficient before going to her home." CM will continue to follow and assist with discharge/planning. Cash Applications Analyst: Bri Morataya DCPIA - Discharge Planning Initial Assessment Updated by [email or web address]: Bri Morataya on 09/22/18 10:57 am * Is the patient Alert and Oriented? Yes * How many steps to enter\\exit or inside your home? 2/0 * PCP Dr. Tran * Pharmacy [facility] in [place] * Preadmission Environment Acute Care Facility * Facility Name [facility] * ADLs Partial Dependent * Partial ADLs (Assistance needed) Ambulation Bathing Medication Management Toileting Transfers * Equipment Bedside Commode Cane Walker Wheelchair * List name and contact numbers for known caregivers / representatives who currently or will assist patient after discharge: Barney Retana [facility] - [phone] Mila Retana [facility] - [phone] * Verbal permission to speak to the caregivers and representatives has been obtained from the patient. Yes * Community resources currently utilized Other * Please name any agencies selected above. Was at [facility] in [place] for skilled therapy * Additional services required to return to the preadmission environment? Yes * Can the patient safely return to the preadmission environment? No * Has this patient been hospitalized within the prior 30 days at any hospital? Yes Last DP export: 09/22/18 10:02 Patient Name: BALDEV RETANA Page 62925 at 1110 All edits/amendments must be made on the electronic document DICTATION DATE: 09/22/181108 HOME SALES CONSULTANT: DONNELL 09/22/181108 RPT#: [id number] DC DATE: STATUS: ADM IN [facility] [address] [place] [address] END OF REPORT
--- NOTE | ~2018-09-21 | HEMODYNAMI ---
PATIENT:BALDEV RETANA MEDICAL RECORD: [id number] : 32 LOCATION:[place] D.2222 ADMISSION DATE: 09/21/18 Generatedon:09/24/201816:56 Patient name: BALDEV RETANA Patient #: [id number] SSN: : Date of study: 09/24/2018 Page: Of Hemodynamic Procedure Report Patient Data Patient Demographics Procedure consent was obtained First Name: BALDEV Gender: Female Last Name: LAINEY : 1930 [facility] Initial: GLENYS Age: 88 year(s) Patient #: [id number] Race: Unknown Additional ID: [id number] Contact details [address]: [address] [place] [address] State: [place] City: [place] Zip code: [address] Admission Admission Data Admission Date: 09/21/2018 Admission Time: 17:56 Room #: D.2222 Height (in.): 61 BSA: 1.65 (m2) Height (cm.): 154.94 BMI: 27.4 (kg/m2) Weight (lbs.): 145 Weight (kg.): 65.77 Procedure Procedure Types Cath Procedure Peripheral Cath Diagnostic Procedure Assistant Professor Of Spanish Peripheral Procedures Liver Liver Biopsy T-Cath Procedure Description Procedure Date Procedure Date: 09/24/2018 Procedure Start Time: 16:23 Procedure Staff Name Function Randy Diaz MD Performing Physician Joseline Graves RT Strip Feeder Belen Mcdaniel RN Nurse Montana Burnett RT Scrub Procedure Data Cath Procedure Fluoroscopy Diagnostic fluoroscopy Total fluoroscopy Time: 9.1 time: 9.1 min min Diagnostic fluoroscopy Total fluoroscopy dose: 117 dose: 117 mGy mGy Contrast Material Contrast Material Type Amount (ml) Isovue 300 15 Procedure Medications Medication Administration Route Dosage Heparin Flush Bag added to field 1 bags (1000units/500ml NS) Lidocaine 1% added to field 20 Versed I.V. 1 mg Fentanyl I.V. 50 mcg Versed I.V. 1 mg Fentanyl I.V. 50 mcg Hemodynamics Rest BSA: 1.65 (m2) O2 Consumption: Estimated: 158.25 (ml/min) O2 Consumption indexed : Estimated:95.91 (ml/min/m) Heart Rate: 90 (bpm) Snapshots Pre Cath Intra NCS Post Cath Vital Signs Time Heart Resp SPO2 etCO2 NIBP (mmHg) Rhythm Pain Sedation Rate (ipm) (%) (mmHg) Status Level (bpm) 16:08:58 101 25 91 22.6 161/84(129) NSR 0 (11) 10(A) , No pain 16:13:34 82 16 94 24.8 157/74(114) NSR 0 (11) 10(A) , No pain 16:18:03 87 22 94 23.3 154/73(120) NSR 0 (11) 10(A) , No pain 16:22:33 89 19 96 23.3 162/75(114) NSR 0 (11) 10(A) , No pain 16:27:32 86 19 94 25.6 Measuring NSR 0 (11) 10(A) , No pain 16:28:01 84 19 94 29.4 150/69(115) NSR 0 (11) 10(A) , No pain 16:32:27 93 24 94 30.9 147/73(109) NSR 0 (11) 10(A) , No pain 16:36:51 83 23 95 27.1 132/82(100) NSR 0 (11) 10(A) , No pain 16:41:12 87 15 95 27.1 150/71(111) NSR 0 (11) 10(A) , No pain 16:45:40 84 16 95 24.8 160/75(119) NSR 0 (11) 10(A) , No pain 16:50:04 82 16 95 26.3 150/74(108) NSR 0 (11) 10(A) , No pain 16:54:35 83 18 94 27.1 141/68(106) NSR 0 (11) 10(A) , No pain Medications Time Medication Route Dose Verified Delivered Reason Notes Effec tiveness by by 16:23:42 Heparin Flush added 1 used for Bag to bags procedure (1000units/500ml field NS) 16:23:56 Lidocaine 1% added 20ml Randy Diaz used for to vial MD PRUETT procedure field 16:24:13 Versed I.V. 1 mg M Sukhdeep Diaz Belen for MD Jonas RODRÍGUEZ sedation 16:24:25 Fentanyl I.V. 50 M Sukhdeep Diaz Belen for olga Mcdaniel RN sedation 16:26:00 Versed I.V. 1 mg M Sukhdeep Diaz Belen for MD Jonas RODRÍGUEZ sedation 16:26:19 Fentanyl I.V. 50 M Sukhdeep Glover for olga Mcdaniel RN sedation Procedure Log Time Note 11:50:12 Patient Height : 61 inches 11:50:16 Patient Weight : 145 lbs 16:04:17 Time tracking: Regular hours (M-F 7:00 - 5:00) 16:04:40 Patient received from Med/Surg to IR Alert and oriented. Tansferred to table in Supine position. 16:04:46 Signed procedure consent form obtained from patient. 16:04:53 H&P Date Dictated: 09/24/2018 Within 30 days and on chart.. 16:05:26 - 16:05:27 ----Pre-sedation anethsthesia assessment.---- 16:05:30 Previous problem with sedation/anesthesia? No ? 16:05:33 Snore? Yes 16:05:36 Sleep apnea? No 16:05:39 Deviated septum? No 16:05:42 Opens mouth fully? Yes 16:05:44 Sticks out tongue? Yes 16:05:53 Airway obstruction? Yes pneumonia 16:05:59 Dentures? No ? 16:06:02 - 16:06:14 IV patent on arrival in right forearm with D5/.45%NaCl at O. 16:06:24 - 16:06:28 Patient diabetic? Yes. 16:06:33 Is patient on blood thinner?No 16:06:37 Is the patient allergic to Iodine/contrast media? No. 16:06:40 - 16:07:29 ECG and BP/O2 sat monitors applied to patient. 16:07:30 Vital chart was started 16:07:36 Baseline sample Acquired. 16:07:42 Full Disclosure recording started 16:07:44 - 16:11:41 Use device set IR Diagnostic 16:11:43 Sterile Angiographic Pack opened to sterile field. 16:11:44 Bag Decanter () opened to sterile field. 16:11:45 Tegaderm 4 x 4 (1626W) opened to sterile field. 16:12:00 KIT LIVER BX ACCESS ([id number]) opened to sterile field. 16:15:[address] Nile (141363) opened to sterile field. 16:21:44 Physician arrived 16:21:46 --------ALL STOP TIME OUT------ 16:21:47 Final Timeout: patient, procedure, and site verified with staff and physician. All members of the team are in agreement. 16:22:04 Procedure started. 16:23:28 Local anesthetic to right IJ vein with Lidocaine 1% by Randy Diaz MD.INITIAL ACCESS ONLY 16:23:32 Venous access obtained using ultrasound guidance. 16:23:42 Heparin Flush Bag (1000units/500ml NS) 1 bags added to field was administered by ; used for procedure; 16:23:52 DOC .035 wire ([id number]) opened to sterile field. 16:23:56 Lidocaine 1% 20ml vial added to field was administered by Randy Diaz MD; used for procedure; 16:24:06 Micropuncture VSI 4FR kit opened to sterile field. 16:24:13 Versed 1 mg I.V. was administered by Belen Mcdaniel RN; for sedation; 16:24:25 Fentanyl 50 mcg I.V. was administered by Belen Mcdaniel RN; for sedation ; 16:26:00 Versed 1 mg I.V. was administered by Belen Mcdaniel RN; for sedation; 16:26:19 Fentanyl 50 mcg I.V. was administered by Belen Mcdaniel RN; for sedation ; 16:30:37 AMPLATZ Super stiff 180cm wire ([id number]) opened to sterile field. 16:30:57 Baseline sample Acquired. 16:32:43 GLIDE CATHETER 5FR ANGLED 65cm (CG507) opened to sterile field. 16:35:39 KIT LIVER BX ACCESS (T51256) opened to sterile field. 16:52:50 Procedure ended.(Physican Out) 16:53:08 Fluoroscopy time 09.10 minutes. 16:53:13 Flurop Dose total: 117 16:53:13 Fluoroscopy dose: 117 mGy 16:53:19 Contrast amount:Isovue 300 15ml. 16:53:23 Procedure and supply charges have been captured, reviewed, submitted an d are correct. 16:55:10 Report given to Med/Surg. 16:56:46 Vital chart was stopped Device Usage Item Name Manufacture Quantity Catalog Hospital Part Current Minima l Lot# / Number Charge Number Stock Stock Serial# Code Sterile Cardinal 1 [id number] 5 Angiographic Health Pack Bag Decanter Microtek 1 [id number] 73289 [id number] 5 () Medical Inc. Tegaderm 4 x 3M 1 1626W 494779 850352 331122 5 4 (1626W) KIT LIVER BX [employer] 2 [id number] 151946 855653 782575 5 [id number] ACCESS [id number] ([id number]) SHEATH [facility]FR [facility] Nile 1 578067 894800 293302 410451 5 Nile (918805) DOC .035 wire [employer] 1 [id number] 034974 048151 5 (A82447) Micropuncture VSI VASCULAR 1 7266V 195220 314973 5 VSI 4FR kit SOLUTIONS AMPLATZ Super [place] 1 [id number] 714021 768539 834128 5 stiff 180cm Scientific wire ([id number]) GLIDE Terumo 1 CG507 119432 425044 5 CATHETER 5FR ANGLED 65cm (CG507) Signature Audit [place] Stage Time Signature Unsigned Intra-Procedure 09/24/2018 Joseline Graves 4:56:44 PM RT(R) [facility] [address] [place] [address]
--- NOTE | ~2018-09-21 | MORECARE ---
CASE MANAGEMENT DISCHARGE SUMMARY PATIENT: BALDEV RETANA UNIT: [id number] ADM DATE: 09/21/18 AGE: 88 : 31 SEX: F ROOM/BED: D.2222 AUTHOR: JARON,DOC PHYSICIAN: REFERRING PHYSICIAN: ROEL JOLLEY MD DATE OF SERVICE: 10/02/18 Discharge Plan Patient Name: BALDEV RETANA Facility: [facility]:[place] : 1930 Planned Disposition: SNF w Planned Readmission Anticipated Discharge Date: Discharge Date: Expected LOS: Initial Reviewer: [email or web address] Initial Review Date: 09/22/2018 Generated: 10/02/18 11:53 am Comments DCP- Discharge Planning Updated by [email or web address]: Bri Morataya on 10/02/18 9:[address] Inpatient rehab screen noted. Patient is asleep in the room. I called patient's son, Barney, and he states that they and the patient would like her to go to inpatient rehab here at [facility]. Son states that he feels like she can rehab enough in the 10-14 days to return home after inpatient rehab is completed. I spoke with Miriam in inpatient rehab and they will screen. CM will continue to follow and assist with discharge planning/needs. DCP- Discharge Planning Updated by [email or web address]: Bri Morataya on 09/29/18 8:[address] Met with patient, she is sitting up in the chair. States her discharge plan remains returning to [facility] to continue her therapy. Updated clinical faxed to [facility]. CM will continue to follow and assist with discharge planning/needs. DCP- Discharge Planning Updated by [email or web address]: Bri Morataya on 09/22/18 10:[address] I spoke with Rosaura at [facility] and they will accept patient back to SNF when medically stable. CM will continue to follow and assist with discharge planning/needs. DCP- Discharge Planning Updated by [email or web address]: Bri Morataya on 09/22/18 10:[address] Patient Name: BALDEV RETANA Admission Status: Elective Accout number: [id number] Admission Date: 09-21-2018 : 1930 Admission Diagnosis: Attending: ROEL JOLLEY Current LOS: 1 Anticipated DC Date: Planned Disposition: SNF w Planned Readmission Primary Insurance: MEDICARE A & B Discharge Planning Comments: CM met with patient to discuss discharge planning. She was alone in the room when starting discharge planning and gave me permission to call her son or ROSITA to discuss plan. She states that she was living alone prior to going to our rehab, then to [facility] for therapy. She would like to go home, but states if she is unable to go home would like to go back to [facility]. She states she has a "walking stick, potty chair, walker and her daughter in law has bought a wheelchair". The son and ROSITA came in before I left the room and they states she does live alone and will need to be "self sufficient before going to her home." CM will continue to follow and assist with discharge/planning. Turning Sander Tender: Bri Morataya DCPIA - Discharge Planning Initial Assessment Updated by [email or web address]: Bri Morataya on 09/22/18 10:57 am * Is the patient Alert and Oriented? Yes * How many steps to enter\\exit or inside your home? 2/0 * PCP Dr. Tran * Pharmacy [facility] in [place] * Preadmission Environment Acute Care Facility * Facility Name [facility] * ADLs Partial Dependent * Partial ADLs (Assistance needed) Ambulation Bathing Medication Management Toileting Transfers * Equipment Bedside Commode Cane Walker Wheelchair * List name and contact numbers for known caregivers / representatives who currently or will assist patient after discharge: Barney Retana - igor - [phone] Mila BECKER - [phone] * Verbal permission to speak to the caregivers and representatives has been obtained from the patient. Yes * Community resources currently utilized Other * Please name any agencies selected above. Was at [facility] in [place] for skilled therapy * Additional services required to return to the preadmission environment? Yes * Can the patient safely return to the preadmission environment? No * Has this patient been hospitalized within the prior 30 days at any hospital? Yes Last DP export: 09/29/18 9:00 Patient Name: BALDEV RETANA Page [id number] at 1053 All edits/amendments must be made on the electronic document DICTATION DATE: 10/02/18 105 OIL LABORATORY ANALYST: DONNELL 10/02/18 105 RPT#: [id number] DC DATE: STATUS: ADM IN [facility] [address] [place] [address] END OF REPORT
[~2018-09-21 17:56] MED LIST changes: +COREG6.25 MG; +GABAPENTIN100 MG; +LYRICA50 MG PO; +MOBIC7.5 MG PO; +ULTRAM50 MG PO
[2018-09-21 18:08] VITALS: BP 150/59; BMI 27.4
[2018-09-21 20:00] VITALS: BP 110/59
[2018-09-22 05:00] VITALS: BP 123/58
[2018-09-22 06:59] LABS: BASOPHILS 0 % (0-2); EOSINOPHILS 0.3 % (0-7); HEMATOCRIT 33.7 % (36.0-48.0); HEMOGLOBIN 10.9 g/dL (12-16); IMMATURE GRANULOCYTES 0.3 % (0-5); LYMPHOCYTES 22.4 % (15-50); MCH 33.6 pg (26.0-34.0); MCHC 32.3 g/dL (31.0-37.0); MEAN PLATELET VOLUME 12.3 fL (7.4-10.4); MONOCYTES 8.4 % (2-11); NEUTROPHILS 68.6 % (40-80); RBC 3.24 10x6/uL (4.00-5.40); WBC 2.9 10x3/uL (4.8-10.8)
[2018-09-22 07:02] LABS: PLATELET COUNT 24 10x3/uL (130-400)
[2018-09-22 07:17] LABS: ALBUMIN 2.2 g/dL (3.4-5.0); ANION GAP 8.1 mmol/L (8-16); BILIRUBIN - TOTAL 1.32 mg/dL (0.2-1.3); CALCIUM 8.2 mg/dL (8.5-10.1); CARBON DIOXIDE 29.4 mmol/L (21.0-32.0); CREATININE - SERUM 0.8 mg/dL (0.6-1.3); POTASSIUM - SERUM 3.5 mmol/L (3.5-5.1); PROTEIN - SERUM 6.4 g/dL (6.4-8.2)
[2018-09-22 08:24] VITALS: BP 147/66
[2018-09-22 10:22] LABS: THYROID STIMULATING HORMONE 6.38 uIU/mL (0.36-3.74)
[2018-09-22 10:52] VITALS: BMI 27.4
[2018-09-22 12:04] VITALS: BP 177/69
[2018-09-22 16:44] VITALS: BP 140/58
[2018-09-22 20:00] VITALS: BP 124/53
[2018-09-22 22:05] VITALS: Ht 154.9 cm; Wt 65.8 kg
[2018-09-23] VITALS (9 sets, daily range): BP systolic 120–155; BP diastolic 55–90
[2018-09-23 04:54] LABS: BASOPHILS 0 % (0-2); EOSINOPHILS 0 % (0-7); HEMATOCRIT 33.7 % (36.0-48.0); HEMOGLOBIN 11.1 g/dL (12-16); LYMPHOCYTES 19.7 % (15-50); MCHC 32.9 g/dL (31.0-37.0); MCV 103.4 fL (80.0-100.0); MEAN PLATELET VOLUME 10.9 fL (7.4-10.4); MONOCYTES 8.3 % (2-11); RBC 3.26 10x6/uL (4.00-5.40); RDW 16.5 % (11.5-14.5); WBC 2.2 10x3/uL (4.8-10.8)
[2018-09-23 05:18] LABS: PLATELET COUNT 21 10x3/uL (130-400)
[2018-09-23 05:19] LABS: APTT 40.1 SECONDS (22.8-39.4); INR 2.01 (0.85-1.17); PROTIME 22.2 SECONDS (11.6-15.0)
[2018-09-23 05:38] LABS: % SATURATION 46 % (15-55); IRON 84 ug/dl (35-150); TOTAL IRON BIND CAPACITY 181 ug/dl (260-445); UNSAT IRON BIND CAPACITY 97 ug/dl (150-375)
[2018-09-23 05:49] LABS: ANION GAP 8.4 mmol/L (8-16); BILIRUBIN - TOTAL 1.35 mg/dL (0.2-1.3); CALCIUM 7.8 mg/dL (8.5-10.1); CARBON DIOXIDE 31.7 mmol/L (21.0-32.0); CHOL - HDL RATIO 5.3 ratio (2.3-4.1); LDL-HDL RATIO 3.9 ratio (1.5-3.5); POTASSIUM - SERUM 3.1 mmol/L (3.5-5.1); PRE-ALBUMIN 12.1 mg/dL (18.0-35.7); PROTEIN - SERUM 6.3 g/dL (6.4-8.2)
[2018-09-23 06:16] LABS: HEPATITIS C ANTIBODY 0.1 S/CO RAT (0.0-0.9)
[2018-09-24] VITALS (11 sets, daily range): BP systolic 126–164; BP diastolic 41–74
[2018-09-24 05:24] LABS: BASOPHILS 0 % (0-2); EOSINOPHILS 0 % (0-7); HEMOGLOBIN 11.2 g/dL (12-16); IMMATURE GRANULOCYTES 0.4 % (0-5); LYMPHOCYTES 17.4 % (15-50); MCH 34.4 pg (26.0-34.0); MCHC 33.9 g/dL (31.0-37.0); MEAN PLATELET VOLUME 10.4 fL (7.4-10.4); MONOCYTES 10.3 % (2-11); NEUTROPHILS 71.9 % (40-80); RBC 3.26 10x6/uL (4.00-5.40); RDW 16.2 % (11.5-14.5); WBC 2.2 10x3/uL (4.8-10.8)
[2018-09-24 05:48] LABS: INR 2.02 (0.85-1.17); PROTIME 22.5 SECONDS (11.6-15.0)
[2018-09-24 05:59] LABS: ALBUMIN 2.1 g/dL (3.4-5.0); BILIRUBIN - TOTAL 1.48 mg/dL (0.2-1.3); CALCIUM 8.2 mg/dL (8.5-10.1); CARBON DIOXIDE 30.8 mmol/L (21.0-32.0); PROTEIN - SERUM 6.3 g/dL (6.4-8.2)
[2018-09-24 06:01] LABS: POTASSIUM - SERUM 2.8 mmol/L (3.5-5.1)
[2018-09-24 06:35] LABS: MCV 101.2 fL (80.0-100.0); PLATELET COUNT 25 10x3/uL (130-400)
[2018-09-24 09:19] LABS: FOLATE (FOLIC ACID) - SERUM 7.5 ng/mL (>3.0)
[2018-09-24 09:31] LABS: MAGNESIUM - SERUM 1.8 mg/dL (1.8-2.4)
[2018-09-24 11:17] LABS: HELICOBACTER PYLORI IGM AB <9.0 units (0.0-8.9)
[2018-09-24 12:18] LABS: ALPHA FETOPROTEIN -(TUMOR MRK) 2.2 ng/mL (0.0-8.3)
[2018-09-24 13:15] LABS: EBV - EARLY ANTIGEN AB IGG 82.8 U/mL (0.0-8.9); EBV VIRAL CAPSID AB IGM <36.0 U/mL (0.0-35.9)
[2018-09-24 15:24] LABS: ANA REFLEX - DIRECT Negative (Negative)
[2018-09-24 17:21] LABS: HEMATOCRIT 30.9 % (36.0-48.0); HEMOGLOBIN 10.3 g/dL (12-16)
[2018-09-24 22:41] LABS: HEMATOCRIT 30.3 % (36.0-48.0)
[2018-09-25 06:26] LABS: BASOPHILS 0 % (0-2); EOSINOPHILS 0 % (0-7); HEMATOCRIT 31.1 % (36.0-48.0); HEMOGLOBIN 10.2 g/dL (12-16); MCHC 32.8 g/dL (31.0-37.0); MEAN PLATELET VOLUME 10.6 fL (7.4-10.4); MONOCYTES 11.7 % (2-11); NEUTROPHILS 69.3 % (40-80); WBC 2.5 10x3/uL (4.8-10.8)
[2018-09-25 06:27] LABS: MCV 103.7 fL (80.0-100.0); PLATELET COUNT 55 10x3/uL (130-400)
[2018-09-25 06:30] LABS: ALBUMIN 2.4 g/dL (3.4-5.0); BILIRUBIN - TOTAL 1.49 mg/dL (0.2-1.3); CALCIUM 8.6 mg/dL (8.5-10.1); PROTEIN - SERUM 6.3 g/dL (6.4-8.2)
[2018-09-25 06:33] LABS: INR 1.66 (0.85-1.17); PROTIME 19.3 SECONDS (11.6-15.0)
[2018-09-25 06:38] VITALS: BP 140/50
[2018-09-25 07:56] VITALS: BP 138/56
[2018-09-25 11:56] VITALS: BP 138/56
[2018-09-25 14:22] LABS: MITOCHONDRIAL ANTIBODY 13.2 Units (0.0-20.0); SMOOTH MUSCLE ABS (ACTIN) 21 Units (0-19)
[2018-09-25 17:17] VITALS: BP 131/63
[2018-09-25 22:09] VITALS: BP 137/57
[2018-09-26 06:16] VITALS: BP 143/62
[2018-09-26 06:19] LABS: HEMATOCRIT 31.7 % (36.0-48.0); HEMOGLOBIN 10.4 g/dL (12-16); MCH 33.9 pg (26.0-34.0); MCHC 32.8 g/dL (31.0-37.0); MCV 103.3 fL (80.0-100.0); MEAN PLATELET VOLUME 11.1 fL (7.4-10.4); PLATELET COUNT 51 10x3/uL (130-400); RBC 3.07 10x6/uL (4.00-5.40); RDW 16.7 % (11.5-14.5); WBC 2.6 10x3/uL (4.8-10.8)
[2018-09-26 06:36] LABS: ALBUMIN 2.4 g/dL (3.4-5.0); ANION GAP 6.5 mmol/L (8-16); BILIRUBIN - TOTAL 1.5 mg/dL (0.2-1.3); CALCIUM 8.2 mg/dL (8.5-10.1); CARBON DIOXIDE 33.1 mmol/L (21.0-32.0); POTASSIUM - SERUM 3.6 mmol/L (3.5-5.1); PROTEIN - SERUM 6.2 g/dL (6.4-8.2)
[2018-09-26 06:37] LABS: INR 1.81 (0.85-1.17); PROTIME 20.6 SECONDS (11.6-15.0)
[2018-09-26 07:07] LABS: LYMPHOCYTES 9 % (15-50); MONOCYTES 5 % (2-11); NEUTROPHILS 86 % (40-80); PLATELET ESTIMATE DECREASED; ROULEAUX 1+
[2018-09-26 16:00] VITALS: BP 130/42
[2018-09-26 20:30] VITALS: BP 135/55
[2018-09-27 00:30] VITALS: BP 150/77
[2018-09-27 04:30] VITALS: BP 153/46
[2018-09-27 05:07] LABS: BASOPHILS 0 % (0-2); EOSINOPHILS 0 % (0-7); HEMATOCRIT 33.2 % (36.0-48.0); HEMOGLOBIN 10.9 g/dL (12-16); IMMATURE GRANULOCYTES 0.3 % (0-5); LYMPHOCYTES 14.9 % (15-50); MCHC 32.8 g/dL (31.0-37.0); MCV 103.4 fL (80.0-100.0); MEAN PLATELET VOLUME 10.2 fL (7.4-10.4); NEUTROPHILS 75.8 % (40-80); RBC 3.21 10x6/uL (4.00-5.40); RDW 16.5 % (11.5-14.5); WBC 2.9 10x3/uL (4.8-10.8)
[2018-09-27 05:12] LABS: PLATELET COUNT 37 10x3/uL (130-400)
[2018-09-27 05:28] LABS: ALBUMIN 2.3 g/dL (3.4-5.0); ANION GAP 5.8 mmol/L (8-16); BILIRUBIN - TOTAL 1.46 mg/dL (0.2-1.3); CALCIUM 8.1 mg/dL (8.5-10.1); CARBON DIOXIDE 33.7 mmol/L (21.0-32.0); CREATININE - SERUM 1.1 mg/dL (0.6-1.3); POTASSIUM - SERUM 3.5 mmol/L (3.5-5.1); PROTEIN - SERUM 6.1 g/dL (6.4-8.2)
[2018-09-27 09:15] VITALS: BP 147/55
[2018-09-27 13:00] VITALS: BP 155/55
[2018-09-27 16:50] VITALS: BP 138/53
[2018-09-27 20:00] VITALS: BP 146/54
[2018-09-28] VITALS: BP 165/91
[2018-09-28 05:00] VITALS: BP 141/46
[2018-09-28 05:58] LABS: BASOPHILS 0 % (0-2); EOSINOPHILS 0.3 % (0-7); HEMATOCRIT 33.8 % (36.0-48.0); IMMATURE GRANULOCYTES 0.3 % (0-5); LYMPHOCYTES 16.8 % (15-50); MCH 33.3 pg (26.0-34.0); MCHC 32.5 g/dL (31.0-37.0); MCV 102.4 fL (80.0-100.0); MEAN PLATELET VOLUME 10.6 fL (7.4-10.4); MONOCYTES 9.2 % (2-11); NEUTROPHILS 73.4 % (40-80); RDW 16.7 % (11.5-14.5); WBC 2.9 10x3/uL (4.8-10.8)
[2018-09-28 06:40] LABS: ALBUMIN 2.2 g/dL (3.4-5.0); ANION GAP 7.1 mmol/L (8-16); BILIRUBIN - TOTAL 1.36 mg/dL (0.2-1.3); CALCIUM 8.4 mg/dL (8.5-10.1); CARBON DIOXIDE 33.6 mmol/L (21.0-32.0); POTASSIUM - SERUM 3.7 mmol/L (3.5-5.1); PROTEIN - SERUM 6.1 g/dL (6.4-8.2)
[2018-09-28 06:50] LABS: PLATELET COUNT 38 10x3/uL (130-400)
[2018-09-28 07:45] VITALS: BP 135/45
[2018-09-28 18:41] VITALS: BP 140/53
[2018-09-28 20:00] VITALS: BP 118/47
[2018-09-29] VITALS: BP 135/46
[2018-09-29 04:48] LABS: BASOPHILS 0 % (0-2); EOSINOPHILS 0.4 % (0-7); HEMATOCRIT 32.4 % (36.0-48.0); HEMOGLOBIN 10.8 g/dL (12-16); IMMATURE GRANULOCYTES 0.4 % (0-5); LYMPHOCYTES 16.9 % (15-50); MCH 34.1 pg (26.0-34.0); MCHC 33.3 g/dL (31.0-37.0); MCV 102.2 fL (80.0-100.0); MONOCYTES 8.3 % (2-11); RBC 3.17 10x6/uL (4.00-5.40); WBC 2.7 10x3/uL (4.8-10.8)
[2018-09-29 05:11] LABS: ALBUMIN 2.2 g/dL (3.4-5.0); ANION GAP 6.5 mmol/L (8-16); BILIRUBIN - TOTAL 1.37 mg/dL (0.2-1.3); CALCIUM 8.4 mg/dL (8.5-10.1); CARBON DIOXIDE 33.3 mmol/L (21.0-32.0); CREATININE - SERUM 1.1 mg/dL (0.6-1.3); POTASSIUM - SERUM 3.8 mmol/L (3.5-5.1); PROTEIN - SERUM 5.9 g/dL (6.4-8.2)
[2018-09-29 05:26] LABS: PLATELET COUNT 24 10x3/uL (130-400)
[2018-09-29 07:21] VITALS: BP 130/66
[2018-09-29 08:43] VITALS: BP 111/52
[2018-09-29 11:57] VITALS: BP 103/47
[2018-09-29 17:16] VITALS: BP 130/50
[2018-09-29 22:17] VITALS: BP 105/43
[2018-09-30 01:08] VITALS: BP 110/51
[2018-09-30 05:08] VITALS: BP 147/49
[2018-09-30 06:29] LABS: BASOPHILS 0 % (0-2); EOSINOPHILS 0.3 % (0-7); HEMATOCRIT 34.9 % (36.0-48.0); HEMOGLOBIN 11.5 g/dL (12-16); IMMATURE GRANULOCYTES 0.3 % (0-5); MCV 103.3 fL (80.0-100.0); MONOCYTES 5.9 % (2-11); NEUTROPHILS 79.5 % (40-80); RBC 3.38 10x6/uL (4.00-5.40); RDW 17.7 % (11.5-14.5)
[2018-09-30 06:38] LABS: PLATELET COUNT 34 10x3/uL (130-400); WBC 3.7 10x3/uL (4.8-10.8)
[2018-09-30 06:47] LABS: ALBUMIN 2.4 g/dL (3.4-5.0); ANION GAP 9.7 mmol/L (8-16); BILIRUBIN - TOTAL 1.41 mg/dL (0.2-1.3); CALCIUM 8.6 mg/dL (8.5-10.1); CARBON DIOXIDE 30.3 mmol/L (21.0-32.0); CREATININE - SERUM 1.2 mg/dL (0.6-1.3); PROTEIN - SERUM 6.5 g/dL (6.4-8.2)
[2018-09-30 08:27] VITALS: BP 138/48
[2018-09-30 12:20] VITALS: BP 129/56
[2018-09-30 14:23] LABS: CMV QUANT DNA PCR (PLASMA) Negative (Negative)
[2018-09-30 20:00] VITALS: BP 97/49
[2018-09-30 20:08] LABS: BASOS 0 % (Not Estab.); CD4 - % CD4 POS. LYMPH 11.9 % (30.8-58.5); CD4 - ABSOLUTE CD4 HELPER 60 /uL (359-1519); EOS 0 % (Not Estab.); HEMATOCRIT 31.3 % (34.0-46.6); HEMATOLOGY COMMENTS Note: (()); HEMOGLOBIN 10.6 g/dL (11.1-15.9); LYMPHS 17 % (Not Estab.); LYMPHS (ABSOLUTE) 0.5 x10E3/uL (0.7-3.1); MCH 33.8 pg (26.6-33.0); MCHC 33.9 g/dL (31.5-35.7); MCV 100 fL (79-97); MONOCYTES 8 % (Not Estab.); MONOCYTES (ABSOLUTE) 0.2 x10E3/uL (0.1-0.9); NEUTROPHILS 74 % (Not Estab.); NEUTROPHILS (ABSOLUTE) 2.2 x10E3/uL (1.4-7.0); PLATELETS 26 x10E3/uL (150-379); RBC 3.14 x10E6/uL (3.77-5.28); RDW 16.9 % (12.3-15.4); WBC 2.9 x10E3/uL (3.4-10.8)
[2018-10-01] VITALS: BP 123/46
[2018-10-01 04:00] VITALS: BP 137/53
[2018-10-01 06:24] LABS: BASOPHILS 0 % (0-2); EOSINOPHILS 0.3 % (0-7); HEMATOCRIT 34.3 % (36.0-48.0); HEMOGLOBIN 11.5 g/dL (12-16); IMMATURE GRANULOCYTES 0.3 % (0-5); LYMPHOCYTES 16.3 % (15-50); MCH 34.5 pg (26.0-34.0); MCHC 33.5 g/dL (31.0-37.0); MEAN PLATELET VOLUME 10.7 fL (7.4-10.4); MONOCYTES 5.1 % (2-11); RBC 3.33 10x6/uL (4.00-5.40); RDW 18.1 % (11.5-14.5); WBC 3.7 10x3/uL (4.8-10.8)
[2018-10-01 06:29] LABS: PLATELET COUNT 25 10x3/uL (130-400)
[2018-10-01 07:43] LABS: ALBUMIN 2.4 g/dL (3.4-5.0); ANION GAP 10.4 mmol/L (8-16); BILIRUBIN - TOTAL 1.24 mg/dL (0.2-1.3); CALCIUM 8.6 mg/dL (8.5-10.1); CARBON DIOXIDE 29.7 mmol/L (21.0-32.0); CREATININE - SERUM 1.1 mg/dL (0.6-1.3); POTASSIUM - SERUM 4.1 mmol/L (3.5-5.1); PROTEIN - SERUM 6.3 g/dL (6.4-8.2)
[2018-10-01 08:41] VITALS: BP 137/54
[2018-10-01 20:00] VITALS: BP 108/40
[2018-10-02] VITALS: BP 131/77
[2018-10-02 04:00] VITALS: BP 146/64
[2018-10-02 05:49] LABS: BASOPHILS 0 % (0-2); EOSINOPHILS 0.6 % (0-7); HEMATOCRIT 35.3 % (36.0-48.0); HEMOGLOBIN 11.7 g/dL (12-16); IMMATURE GRANULOCYTES 0.3 % (0-5); LYMPHOCYTES 13.9 % (15-50); MCH 34.2 pg (26.0-34.0); MCHC 33.1 g/dL (31.0-37.0); MCV 103.2 fL (80.0-100.0); MEAN PLATELET VOLUME 10.9 fL (7.4-10.4); NEUTROPHILS 80.2 % (40-80); RBC 3.42 10x6/uL (4.00-5.40); RDW 18.2 % (11.5-14.5); WBC 3.4 10x3/uL (4.8-10.8)
[2018-10-02 05:53] LABS: PLATELET COUNT 22 10x3/uL (130-400)
[2018-10-02 06:04] LABS: ALBUMIN 2.4 g/dL (3.4-5.0); ANION GAP 6.6 mmol/L (8-16); BILIRUBIN - TOTAL 1.53 mg/dL (0.2-1.3); CALCIUM 8.3 mg/dL (8.5-10.1); CARBON DIOXIDE 31.6 mmol/L (21.0-32.0); CREATININE - SERUM 1.1 mg/dL (0.6-1.3); POTASSIUM - SERUM 4.2 mmol/L (3.5-5.1); PROTEIN - SERUM 6.3 g/dL (6.4-8.2)
[2018-10-02 09:00] VITALS: BP 122/46
[2018-10-02 12:30] VITALS: BP 112/68
[2018-10-02 16:27] VITALS: BP 151/65
[2018-10-02 20:02] VITALS: BP 93/32
[2018-10-03 00:31] VITALS: BP 119/38
[2018-10-03 04:56] VITALS: BP 124/57
[2018-10-03 09:10] VITALS: BP 127/43
[2018-10-03 10:17] LABS: CALCIUM 8.8 mg/dL (8.5-10.1); CARBON DIOXIDE 30.7 mmol/L (21.0-32.0); CREATININE - SERUM 1.3 mg/dL (0.6-1.3); POTASSIUM - SERUM 3.7 mmol/L (3.5-5.1)
[2018-10-03 10:21] LABS: BASOPHILS 0 % (0-2); EOSINOPHILS 1.5 % (0-7); HEMATOCRIT 35.1 % (36.0-48.0); HEMOGLOBIN 11.7 g/dL (12-16); IMMATURE GRANULOCYTES 0.2 % (0-5); LYMPHOCYTES 18.8 % (15-50); MCH 34.7 pg (26.0-34.0); MCHC 33.3 g/dL (31.0-37.0); MCV 104.2 fL (80.0-100.0); MEAN PLATELET VOLUME 10.8 fL (7.4-10.4); MONOCYTES 4.7 % (2-11); NEUTROPHILS 74.8 % (40-80); RBC 3.37 10x6/uL (4.00-5.40); RDW 18.7 % (11.5-14.5)
[2018-10-03 10:24] LABS: PLATELET COUNT 48 10x3/uL (130-400)
[2018-10-03 12:13] VITALS: BP 103/40
[2018-10-03 14:44] VITALS: BP 100/38
[2018-10-03 20:30] VITALS: BP 100/40
[2018-10-04 00:30] VITALS: BP 95/50
[2018-10-04 04:30] VITALS: BP 134/54
[2018-10-04 07:07] LABS: HEMATOCRIT 34.6 % (36.0-48.0); HEMOGLOBIN 11.3 g/dL (12-16); MCH 34.2 pg (26.0-34.0); MCHC 32.7 g/dL (31.0-37.0); MCV 104.8 fL (80.0-100.0); MEAN PLATELET VOLUME 11.2 fL (7.4-10.4); RDW 18.8 % (11.5-14.5)
[2018-10-04 07:19] LABS: ALBUMIN 2.3 g/dL (3.4-5.0); ANION GAP 8.5 mmol/L (8-16); BILIRUBIN - TOTAL 2.02 mg/dL (0.2-1.3); CARBON DIOXIDE 30.5 mmol/L (21.0-32.0); CREATININE - SERUM 1.3 mg/dL (0.6-1.3)
[2018-10-04 07:24] LABS: INR 1.67 (0.85-1.17); PROTIME 19.1 SECONDS (11.6-15.0)
[2018-10-04 07:29] LABS: WBC 2.3 10x3/uL (4.8-10.8)
[2018-10-04 07:33] LABS: PLATELET COUNT 30 10x3/uL (130-400)
[2018-10-04 08:27] LABS: BASOPHILS 1 % (0-2); EOSINOPHILS 4 % (0-7); LYMPHOCYTES 10 % (15-50); MONOCYTES 3 % (2-11); NEUTROPHILS 81 % (40-80); PLATELET ESTIMATE DECREASED; PLATELET MORPHOLOGY NO PLT CLUMPS SEEN
[2018-10-04 08:35] VITALS: BP 131/49
[2018-10-04 15:05] VITALS: BP 128/50
[2018-10-04 20:00] VITALS: BP 132/69
[2018-10-05] VITALS (7 sets, daily range): BP systolic 124–155; BP diastolic 42–62
[2018-10-05 06:07] LABS: BASOPHILS 0 % (0-2); EOSINOPHILS 0 % (0-7); HEMOGLOBIN 11.1 g/dL (12-16); LYMPHOCYTES 10.1 % (15-50); MCH 34.4 pg (26.0-34.0); MCHC 32.6 g/dL (31.0-37.0); MCV 105.3 fL (80.0-100.0); MEAN PLATELET VOLUME 11.2 fL (7.4-10.4); MONOCYTES 4.9 % (2-11); RBC 3.23 10x6/uL (4.00-5.40); RDW 18.6 % (11.5-14.5)
[2018-10-05 06:15] LABS: PLATELET COUNT 34 10x3/uL (130-400); WBC 3.5 10x3/uL (4.8-10.8)
[2018-10-05 06:23] LABS: ANION GAP 8.5 mmol/L (8-16); CALCIUM 8.4 mg/dL (8.5-10.1); CARBON DIOXIDE 29.8 mmol/L (21.0-32.0); POTASSIUM - SERUM 4.3 mmol/L (3.5-5.1)
[2018-10-05] MEDS ORDERED: FLAGYL 500500 MG/100 IV (16:41)
[2018-10-05] MEDS ORDERED: TESSALON PERLE100 MG PO (16:42)
[2018-10-05] MEDS ORDERED: BROVANA15 MCG/2 M INH (16:42)
[2018-10-05] MEDS ORDERED: Potassium Cl oral po PO (16:42)
[2018-10-05] MEDS ORDERED: IPRAT-ALBUT 0.5-3 ML UPD (16:42)
[2018-10-05] MEDS ORDERED: LASIX INJ40 MG/4 ML IV (16:42)
[2018-10-05] MEDS ORDERED: PULMICORT0.5 MG/21 UPD (16:42)
[2018-10-05] MEDS ORDERED: QUESTRAN LIG1 PACKET PO (16:42)
[2018-10-05] MEDS ORDERED: ONDANSETRON4 MG/2 M3 IV (16:43)
[2018-10-05] MEDS ORDERED: PREDNISONE10 MG PO (16:43)
[2018-10-05] MEDS ORDERED: ROBITUSSIN DM 110 ML PO (16:43)
[2018-10-05] MEDS ORDERED: HUMALOG 30100 UNITS/ SC (16:43)
[2018-10-05] MEDS ORDERED: LOPERAMIDE HCL2 MG PO (16:43)
[2018-10-05] MEDS ORDERED: PROTONIX40 MG PO (16:43)
[2018-10-05] MEDS ORDERED: FLORAJEN3 CAPS460 MG PO (16:43)
== END 2018-10-05 19:12 | DRG 432 ==
LOC: D.MS 17:56
PROVIDERS: Emergency Medicine; Family Medicine; Internal Medicine Gastroenterology; Internal Medicine Nephrology; Internal Medicine Pulmonary Disease; Radiology Vascular & Interventional Radiology; Student in an Organized Health Care Education/Training Program
PROC: 0FB03ZX Excision of Liver, Percutaneous Approach, Diagnostic (ICD-10-PCS; principal; 2018-09-24 16:00)
PROC: 07DR3ZX Extraction of Iliac Bone Marrow, Percutaneous Approach, Diagnostic (ICD-10-PCS; 2018-10-05)
DX: K74.60 Unspecified cirrhosis of liver (principal); J18.9 Pneumonia, unspecified organism; J96.21 Acute and chronic respiratory failure with hypoxia; C85.90 Non-Hodgkin lymphoma, unspecified, unspecified site; I10 Essential (primary) hypertension; D69.6 Thrombocytopenia, unspecified; E11.9 Type 2 diabetes mellitus without complications

== ENCOUNTER 2018-10-05 18:51 | Inpatient (IN) | payer MEDICARE, BC ==
[~2018-10-05] VITALS: Ht 154.9 cm; Wt 56.7 kg
--- NOTE | ~2018-10-05 | RHP ---
PATIENT: BALDEV RETANA MEDICAL RECORD: [id number] ACCOUNT: [id number] [facility] ADMISSION DATE: 10/05/18 REHABILITATION HISTORY AND PHYSICAL EXAMINATION POST ADMISSION PHYSICIAN EXAMINATION DATE OF ADMISSION: 10/05/2018 ADMITTING DIAGNOSIS: Disuse myopathy. 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 She is admitted as a transfer from an outside hospital for higher level of care and pulmonary workup. Apparently, has a history of obstructive sleep apnea and other problems. Apparently, also has a need for a liver biopsy, checking for underlying cirrhosis. She has got a history of diabetes, cataracts, hypothyroidism, hypertension, lymphoma, cirrhosis. The patient is followed by Dr. Zapata in the past for a hemolytic problems. The patient stopped the chemotherapy due to poor tolerance, but continued to have low platelets, attributed to chronic splenomegaly. CT of her abdomen in 2016 revealed hepatic cirrhosis and portal hypertension and esophageal varices. She had a liver biopsy on 09/25/2018 which revealed acute cirrhosis with minimal activity. She also was seen by pulmonary, who felt like she had a community-acquired pneumonia. Her platelet count was 24,000 on admission, it has remained somewhere between 20,000 and 50,000 throughout her stay. She has had 2 units of thawed plasma and 5 units of plasmapheresis. Oncology has been seeing her throughout her stay secondary to her thrombocytopenia, leukopenia. The patient stated that she was also seen by speech therapy. They were there to rule out oropharyngeal dysphagia due to debility, strangulation at times and pneumonia. There were no overt signs of aspiration, but she has been coached by speech therapy for swallowing safety and dietary tolerance. GI was consulted for her cirrhosis. She has been placed on Levaquin and Zithromax for her pneumonia. She has been on Flagyl 500 mg and she is going to receive a total of 21 doses of 7 days of therapy. Previously, she was living independently and doing her ADLs and mobility with moderate independent with the use of a cane. Recently, when she was hospitalized in August, she came to the acute rehab and then transferred to a skilled facility. From the skilled facility, she went to the ER in [place] and was transferred to [place] for a higher level of care. She remains very fatigued, weak and has dyspnea on exertion. She has ambulated 130 feet with max assist. She has been titrated down to 2 liters of O2 per nasal cannula from 4. She needs to regain her strength in the acute rehabilitation while awaiting results of bone marrow biopsy that was recently done and making a treatment plan. COMORBIDITIES: In this patient include hypothyroidism. She has got a history of debility, lobar pneumonia, community-acquired pneumonia, diabetes, pancytopenia, coagulopathy, cataracts, disuse myopathy, acute hypoxic respiratory failure, cirrhosis, history of non-Hodgkin's lymphoma, gallstones, hypoalbuminemia, hypertension. PAST MEDICAL HISTORY: Significant for non-Hodgkin's lymphoma, hyperkalemia, hypertension, cataracts, diabetes, hypothyroidism, weakness and cirrhosis. PAST SURGICAL HISTORY: Includes hysterectomy and port placement. HISTORY AND PHYSICAL [id number] BALDEV RETANA ALLERGIES: METFORMIN. CURRENT MEDICATIONS: Include Lyrica 50 mg daily; prednisone, she is on a tapering dose; Coreg 6.25 mg b.i.d. with meals, she is on Actos 15 mg daily; Protonix 40 mg daily; Synthroid 75 mcg daily; Floranex 460 mg daily; furosemide 40 mg b.i.d.; she is on Questran 1 packet daily; she is on a glucose replacement protocol; she is on tramadol 50 mg every 6 hours p.r.n.; potassium 20 mEq b.i.d.; Zofran 4 mg every 4 hours p.r.n.; Flagyl 500 mg for a total of 21 doses; Imodium 2 mg t.i.d. p.r.n.; DuoNeb updrafts as needed; she is on an intermediate resistant sliding scale with Humalog insulin; Robitussin 10 cc q.i.d.; Pulmicort 0.5 mg b.i.d.; Tessalon Perles 100 mg t.i.d. p.r.n.; Brovana 15 mcg b.i.d. and MiraLax 17 grams in 8 ounces of water daily. HABITS: No current alcohol or tobacco use. FAMILY HISTORY: Noncontributory. SOCIAL HISTORY: The patient hopes to return back home and get back to her prior level of functioning. REVIEW OF SYSTEMS: GENERAL: Does complain of weakness and fatigue. HEENT: Denies cold, cough, or congestion. CARDIOVASCULAR: Denies chest pain. PHYSICAL EXAMINATION: VITAL SIGNS: Stable, afebrile. GENERAL: A well-developed female in no acute distress, alert upon exam. HEENT: Normocephalic and atraumatic. Mucosa moist. NECK: Supple. No lymphadenopathy. LUNGS: Coarse breath sounds bilaterally with decreased breath sounds in the bases. HEART: Regular rate and rhythm. No murmurs, rubs or gallops. ABDOMEN: Benign, nontender, nondistended. Positive bowel sounds times 4. EXTREMITIES: No clubbing, cyanosis or edema. NEUROLOGIC: She does have noted proximal muscle weakness. LABORATORY DATA: Her white count is 2.7, her H&H of 11 and 33.9 and platelet count is 28,000. Her MCV is elevated at 105.9. Her sodium is 140, potassium 4.0, BUN and creatinine of 30 and 0.9 and blood sugar is noted to be 146. 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 The patient has potential to make improvement. We instituted the following multidisciplinary therapies including, but not limited to physical, occupational, respiratory, speech, nutritional services, prosthetics and orthotics. Given her complex medical condition and risk for more complications, rehabilitation services cannot be provided at a low level of care such as a skilled nurse facility. PLAN: 1. Admit to [place] rehabilitation services for intensive inpatient therapy to include the following disciplines: A. Physical therapy to improve gait, all transfer skills and bed mobility to a modified independent level. HISTORY AND PHYSICAL [id number] BALDEV RETANA B. Occupational therapy to a modified independent level. C. Case management to assist with discharge planning and placement options. D. Nutrition to assist with nutritional needs. E. Rehabilitation nursing to assist in monitoring the patient's underlying medical conditions and to assist with any type of bowel or bladder management. 2. The patient's current medication and medical care will be continued. 3. The patient will be placed on standard fall precautions. 4. We will consult heme/onc to see her again if we have problems with her pancytopenia, thrombocytopenia and low platelets. 5. I am going to follow her up in the a.m. TRANSINT:[id number] Voice Confirmation ID: [id number] DOCUMENT ID: [id number] 10/16/2018 Edited for senia PAREDES. LENA notes whether there has been none or any medical/functional change since admission: - No chance since preadmission screen. LENA attests patient continues to be appropriate for IRF: - Contiues to be appropriate. AZEEM JULIO MD at 1538 CC: [id number] DICTATION DATE: 10/06/18 08 COSTING MANAGER: 10/06/18 0916 DIS IN 10/16/18 [place] [address] [place] [address]
[~2018-10-05 18:51] MED LIST changes: +BROVANA15 MCG/2 M INH; +FLAGYL 500500 MG/100 IV; +FLORAJEN3 CAPS460 MG PO; +HUMALOG 30100 UNITS/ SC; +IPRAT-ALBUT 0.5-3 ML UPD; +LASIX INJ40 MG/4 ML IV; +LOPERAMIDE HCL2 MG PO; +ONDANSETRON4 MG/2 M3 IV; +PREDNISONE10 MG PO; +PROTONIX40 MG PO; +PULMICORT0.5 MG/21 UPD; +Potassium Cl oral po PO; +QUESTRAN LIG1 PACKET PO; +ROBITUSSIN DM 110 ML PO; +TESSALON PERLE100 MG PO
[2018-10-05 20:00] VITALS: BP 127/53
[2018-10-05 22:31] VITALS: BMI 23.6
[2018-10-06 06:29] LABS: BASOPHILS 0 % (0-2); EOSINOPHILS 0.7 % (0-7); HEMATOCRIT 33.9 % (36.0-48.0); HEMOGLOBIN 11.1 g/dL (12-16); LYMPHOCYTES 23.8 % (15-50); MCH 34.7 pg (26.0-34.0); MCHC 32.7 g/dL (31.0-37.0); MCV 105.9 fL (80.0-100.0); NEUTROPHILS 71.5 % (40-80); WBC 2.7 10x3/uL (4.8-10.8)
[2018-10-06 06:56] LABS: ANION GAP 7.4 mmol/L (8-16); CALCIUM 8.4 mg/dL (8.5-10.1); CARBON DIOXIDE 30.6 mmol/L (21.0-32.0); CREATININE - SERUM 0.9 mg/dL (0.6-1.3)
[2018-10-06 07:03] LABS: PLATELET COUNT 28 10x3/uL (130-400)
[2018-10-06 08:00] VITALS: BP 116/35
[2018-10-06 13:20] VITALS: BMI 23.6
[2018-10-06 19:00] VITALS: BP 128/50
[2018-10-07 07:24] LABS: BASOPHILS 0 % (0-2); EOSINOPHILS 0.4 % (0-7); HEMATOCRIT 33.9 % (36.0-48.0); HEMOGLOBIN 11.1 g/dL (12-16); LYMPHOCYTES 14.8 % (15-50); MCH 34.5 pg (26.0-34.0); MCHC 32.7 g/dL (31.0-37.0); MCV 105.3 fL (80.0-100.0); MEAN PLATELET VOLUME 12.2 fL (7.4-10.4); MONOCYTES 5.6 % (2-11); NEUTROPHILS 79.2 % (40-80); RBC 3.22 10x6/uL (4.00-5.40); RDW 18.5 % (11.5-14.5); WBC 2.7 10x3/uL (4.8-10.8)
[2018-10-07 07:28] LABS: PLATELET COUNT 24 10x3/uL (130-400)
[2018-10-07 07:35] LABS: CALCIUM 8.4 mg/dL (8.5-10.1); CARBON DIOXIDE 28.2 mmol/L (21.0-32.0); CREATININE - SERUM 0.9 mg/dL (0.6-1.3); POTASSIUM - SERUM 4.2 mmol/L (3.5-5.1)
[2018-10-07 08:01] VITALS: BP 113/38
[2018-10-07 16:13] VITALS: Ht 154.9 cm; Wt 56.7 kg
[2018-10-07 19:05] VITALS: BP 111/43
[2018-10-08 08:00] VITALS: BP 109/42
[2018-10-08 19:15] VITALS: BP 117/46
[2018-10-09 06:22] LABS: CALCIUM 8.2 mg/dL (8.5-10.1); CARBON DIOXIDE 27.1 mmol/L (21.0-32.0)
[2018-10-09 06:30] LABS: BASOPHILS 0 % (0-2); EOSINOPHILS 0.6 % (0-7); HEMATOCRIT 34.6 % (36.0-48.0); HEMOGLOBIN 11.5 g/dL (12-16); IMMATURE GRANULOCYTES 0.3 % (0-5); LYMPHOCYTES 14.9 % (15-50); MCH 34.4 pg (26.0-34.0); MCHC 33.2 g/dL (31.0-37.0); MCV 103.6 fL (80.0-100.0); MEAN PLATELET VOLUME 12.1 fL (7.4-10.4); MONOCYTES 4.8 % (2-11); NEUTROPHILS 79.4 % (40-80); POTASSIUM - SERUM 5.1 mmol/L (3.5-5.1); RBC 3.34 10x6/uL (4.00-5.40); RDW 18.8 % (11.5-14.5); WBC 3.2 10x3/uL (4.8-10.8)
[2018-10-09 06:33] LABS: PLATELET COUNT 21 10x3/uL (130-400)
[2018-10-09 08:00] VITALS: BP 134/51
[2018-10-09 19:00] VITALS: BP 126/46
[2018-10-10 08:00] VITALS: BP 123/52
[2018-10-10 23:56] VITALS: BP 114/54
[2018-10-11 19:59] VITALS: BP 122/48
[2018-10-12 06:39] LABS: HEMATOCRIT 36.4 % (36.0-48.0); HEMOGLOBIN 12.3 g/dL (12-16); LYMPHOCYTES 20.8 % (15-50); MCH 35.3 pg (26.0-34.0); MCHC 33.8 g/dL (31.0-37.0); MCV 104.6 fL (80.0-100.0); NEUTROPHILS 72.9 % (40-80); RBC 3.48 10x6/uL (4.00-5.40); RDW 20.2 % (11.5-14.5)
[2018-10-12 06:44] LABS: ANION GAP 11.2 mmol/L (8-16); CALCIUM 8.2 mg/dL (8.5-10.1); CARBON DIOXIDE 27.9 mmol/L (21.0-32.0); CREATININE - SERUM 0.9 mg/dL (0.6-1.3); POTASSIUM - SERUM 4.1 mmol/L (3.5-5.1)
[2018-10-12 06:58] LABS: PLATELET COUNT 8 10x3/uL (130-400)
[2018-10-12 08:33] VITALS: BP 144/55
[2018-10-12 19:00] VITALS: BP 112/52
[2018-10-13 00:23] VITALS: BP 154/65
[2018-10-13 06:18] LABS: BASOPHILS 0 % (0-2); EOSINOPHILS 0.8 % (0-7); HEMATOCRIT 34.6 % (36.0-48.0); HEMOGLOBIN 11.4 g/dL (12-16); MCH 34.8 pg (26.0-34.0); MCHC 32.9 g/dL (31.0-37.0); MCV 105.5 fL (80.0-100.0); MEAN PLATELET VOLUME 10.1 fL (7.4-10.4); MONOCYTES 8.9 % (2-11); NEUTROPHILS 71.3 % (40-80); RBC 3.28 10x6/uL (4.00-5.40); RDW 19.9 % (11.5-14.5); WBC 2.4 10x3/uL (4.8-10.8)
[2018-10-13 06:40] LABS: PLATELET COUNT 33 10x3/uL (130-400)
[2018-10-13 08:15] VITALS: BP 149/55
[2018-10-13 15:59] VITALS: BP 145/54
[2018-10-13 21:55] VITALS: BP 113/44
[2018-10-14 06:12] LABS: BASOPHILS 0 % (0-2); EOSINOPHILS 1.8 % (0-7); HEMATOCRIT 34.3 % (36.0-48.0); HEMOGLOBIN 11.3 g/dL (12-16); LYMPHOCYTES 24.8 % (15-50); MCH 34.7 pg (26.0-34.0); MCHC 32.9 g/dL (31.0-37.0); MCV 105.2 fL (80.0-100.0); MEAN PLATELET VOLUME 10.5 fL (7.4-10.4); MONOCYTES 7.3 % (2-11); NEUTROPHILS 66.1 % (40-80); RBC 3.26 10x6/uL (4.00-5.40)
[2018-10-14 06:24] LABS: PLATELET COUNT 29 10x3/uL (130-400); WBC 1.7 10x3/uL (4.8-10.8)
[2018-10-14 06:37] LABS: CALCIUM 8.4 mg/dL (8.5-10.1); CARBON DIOXIDE 29.5 mmol/L (21.0-32.0); CREATININE - SERUM 0.9 mg/dL (0.6-1.3); POTASSIUM - SERUM 4.5 mmol/L (3.5-5.1)
[2018-10-14 08:00] VITALS: BP 143/56
[2018-10-14 19:00] VITALS: BP 141/55
[2018-10-15 07:59] VITALS: BP 135/48
[2018-10-15 19:00] VITALS: BP 94/43
[2018-10-16 06:15] LABS: BASOPHILS 0 % (0-2); EOSINOPHILS 0.6 % (0-7); HEMATOCRIT 34.9 % (36.0-48.0); HEMOGLOBIN 11.5 g/dL (12-16); IMMATURE GRANULOCYTES 1.5 % (0-5); MCH 34.5 pg (26.0-34.0); MCV 104.8 fL (80.0-100.0); MONOCYTES 7.1 % (2-11); NEUTROPHILS 76.8 % (40-80); RBC 3.33 10x6/uL (4.00-5.40); RDW 20.2 % (11.5-14.5)
[2018-10-16 06:30] LABS: PLATELET COUNT 25 10x3/uL (130-400); WBC 5.2 10x3/uL (4.8-10.8)
[2018-10-16 06:45] LABS: ANION GAP 12.6 mmol/L (8-16); CALCIUM 8.2 mg/dL (8.5-10.1); CARBON DIOXIDE 28.8 mmol/L (21.0-32.0); POTASSIUM - SERUM 4.4 mmol/L (3.5-5.1)
[2018-10-16 08:00] VITALS: BP 124/46
[2018-10-16] MEDS ORDERED: ALDACTONE25 MG PO (08:14)
[2018-10-16] MEDS ORDERED: ZOFRAN4 MG PO (08:15)
[2018-10-16] MEDS ORDERED: LASIX40 MG PO (08:15)
[2018-10-16] MEDS ORDERED: K-DUR20 MEQ PO (08:15)
[2018-10-16] MEDS ORDERED: ANUSOL-HC 2.5%30 GM TOPICAL (09:24)
== END 2018-10-16 13:06 | DRG 91 ==
LOC: D.REHAB 18:51
PROVIDERS: Emergency Medicine
DX: G72.89 Other specified myopathies (principal); J18.9 Pneumonia, unspecified organism; J96.01 Acute respiratory failure with hypoxia; D61.818 Other pancytopenia; J98.11 Atelectasis; E03.9 Hypothyroidism, unspecified; K74.60 Unspecified cirrhosis of liver; K80.80 Other cholelithiasis without obstruction; I10 Essential (primary) hypertension; E88.09 Other disorders of plasma-protein metabolism, not elsewhere classified; H26.9 Unspecified cataract; E11.65 Type 2 diabetes mellitus with hyperglycemia; R53.81 Other malaise; D69.6 Thrombocytopenia, unspecified